=== PATIENT | male | born 1950 | race Caucasian/White ===

== ENCOUNTER 2016-03-14 06:02 | Day surgery (SDC) | END 2016-03-14 09:06 | disposition home or self-care (01) | DX: C16.9 Malignant neoplasm of stomach, unspecified (principal); K29.50 Unspecified chronic gastritis without bleeding; K25.9 Gastric ulcer, unspecified as acute or chronic, without hemorrhage or perforation; K21.9 Gastro-esophageal reflux disease without esophagitis; E11.9 Type 2 diabetes mellitus without complications | CPT/HCPCS: 43236; 43239; 82962; 88305; 88312; Z7610 ==

== ENCOUNTER 2016-04-26 08:24 | Inpatient (IN) | payer OTHER ==
[2016-04-26] VITALS (38 sets, daily range): BP systolic 102–150; BP diastolic 55–77; PULSE 60–104; RESP 10–21; Ht 165.1 cm; Wt 75.7 kg
[~2016-04-26] VITALS: Ht 165.1 cm; Wt 75.7 kg
[~2016-04-26 08:24] MED LIST: OMEP20CA16 PO; ROCURONIUM 50 MG INJ ONE; [UNRECOGNIZED DRUG - REMARK]
--- NOTE | 2016-04-26 09:55 | RADRPT ---
PROCEDURE: XR Chest. CLINICAL INDICATION: Chest pain. TECHNIQUE: AP Portable chest. COMPARISON: None FINDINGS: The cardiomediastinal silhouette is normal. Faint atherosclerotic calcifications of the thoracic ao rta are identified. Slight coarsening of the interstitial markings are seen within the right mid an d lower lung zone, likely reflecting chronic changes. No lobar consolidation or pleural effusion is evident. Mild degenerative changes of the thoracic spine are noted. IMPRESSION: 1. No radiographic evidence of acute cardiopulmonary disease. 2. Presumed mild chronic interstitial prominence in the right mid and lower lung zone. 3. Slight atherosclerotic calcifications of the thoracic aorta. RPTAT: PP .Fifi Narvaez MD, MD Date Time Electronically viewed and signed by .Fifi Narvaez MD, on 04/26/2016 09:55 .H/
[2016-04-26 10:18] LABS: ADD SCAN DIFF NO
[2016-04-26 10:21] LABS: BASOPHILS % 0.2 % (0.0-2.0); EOSINOPHILS % 0.7 % (0.0-7.0); HEMATOCRIT 44.4 % (42.0-52.0); HEMOGLOBIN 15.2 g/dl (14.0-18.0); LYMPHOCYTES # 1.2 10^3/ul (0.8-2.9); LYMPHOCYTES % 28.6 % (15.0-51.0); MEAN CORPUSCULAR HEMOGLOBIN 31.5 pg (29.0-33.0); MEAN CORPUSCULAR HGB CONC 34.2 g/dl (32.0-37.0); MEAN CORPUSCULAR VOLUME 91.9 fl (82.0-101.0); MEAN PLATELET VOLUME 10.7 fl (7.4-10.4); MONOCYTE # 0.3 10^3/ul (0.3-0.9); NEUTROPHIL # 2.7 10^3/ul (1.6-7.5); NEUTROPHILS % 63.3 % (39.0-77.0); PLATELET COUNT 172 10^3/UL (140-415); RED BLOOD COUNT 4.83 10^6/ul (4.70-6.10); RED CELL DISTRIBUTION WIDTH 12.3 % (11.5-14.5); WHITE BLOOD COUNT 4.3 10^3/ul (4.8-10.8)
[2016-04-26] MEDS ORDERED: SOD CHLORIDE 0.9% 1,000 ML IV SCH (10:30)
[2016-04-26 10:31] LABS: INR 1.01; PROTIME 13.3 Sec (12.2-14.2)
[2016-04-26 10:32] LABS: PARTIAL THROMBOPLASTIN TIME 29.9 Sec (25.0-35.0)
[2016-04-26] MEDS ORDERED: PROPOFOL 20 ML ONE (10:35)
[2016-04-26] MEDS ORDERED: MIDAZOLAM 1 MG/ML 2 ML INJ ONE (10:35)
[2016-04-26] MEDS ORDERED: ROCURONIUM 50 MG INJ ONE (10:35)
[2016-04-26 10:38] LABS: CALCIUM 9.3 mg/dl (8.4-10.2); CREATININE 0.72 mg/dl (0.61-1.24); POTASSIUM 4.1 mmol/L (3.5-5.1)
[2016-04-26] MEDS ORDERED: AMPICILLIN/SULB 3 GM/NS (PMX) 100 ML IVPB SCH (11:00)
[2016-04-26] MEDS ORDERED: morphine SULFATE/PF (10 MG/10 ML) INJ ONE (11:07)
[2016-04-26] MEDS ORDERED: PHENYLephrine (100 MCG/ML) 5ML SYG ONE (12:24)
[2016-04-26] MEDS ORDERED: FAMOTIDINE 20 MG INJ ONE (13:06)
[2016-04-26] MEDS ORDERED: DEXAMETHASONE 4 MG/ML 1 ML INJ ONE (13:06)
[2016-04-26] MEDS ORDERED: ONDANSETRON 4 MG INJ ONE (13:07)
--- NOTE | 2016-04-26 13:16 | RADRPT ---
PROCEDURE: XR Chest. CLINICAL INDICATION: Check line placement. TECHNIQUE: Single frontal view. COMPARISON: 04/26/2016. 0926 hours. FINDINGS: The endotracheal tube is in satisfactory position, 6.5 cm above the eduardo. The right internal jugu lar vein catheter is in satisfactory position with the tip in the cavoatrial junction region. The l ungs are clear. The heart size is normal. There is no pleural effusion. There is no pneumothorax. IMPRESSION: 1. Endotracheal tube and right internal jugular vein catheter in satisfactory position. 2. No pneumothorax. RPTAT: QQ .Manuel Mera MD, MD Date Time Electronically viewed and signed by .Manuel Mera MD, on 04/26/2016 13:15 .R/
[2016-04-26] MEDS ORDERED: BUPIVACAINE 0.5%/EPI (SDV) 30 ML INJ ONE (13:45)
[2016-04-26] MEDS ORDERED: GLYCOPYRROLATE 0.4 MG INJ ONE (13:56)
[2016-04-26] MEDS ORDERED: NEOSTIGMINE 3 MG/3 ML SYRINGE ONE (13:57)
[2016-04-26] MEDS ORDERED: ONDANSETRON 4 MG INJ IV PRN (14:00)
[2016-04-26] MEDS ORDERED: DIPHENHYDRAMINE 50 MG INJ IV PRN (14:00)
[2016-04-26] MEDS ORDERED: ZOLPIDEM 5 MG TAB PO PRN (14:00)
[2016-04-26] MEDS ORDERED: KETOROLAC 30 MG INJ IV PRN (14:00)
[2016-04-26] MEDS ORDERED: HYDROmorphONE 1 MG/ML SYG IV PRN ×2 (14:00→16:00)
[2016-04-26] MEDS ORDERED: PROCHLORPERAZINE 10 MG INJ IV PRN (14:00)
[2016-04-26] MEDS ORDERED: NALOXONE (0.4 MG/ML) INJ IV PRN (14:00)
[2016-04-26] MEDS ORDERED: hydrALAzine 20 MG INJ ONE (14:07)
--- NOTE | 2016-04-26 14:33 | OPR ---
DATE OF OPERATION: 04/26/2016 PREOPERATIVE DIAGNOSIS: Gastric cancer. POSTOPERATIVE DIAGNOSIS: Gastric cancer. OPERATION PERFORMED: Subtotal gastrectomy. SURGEON: Joel Villegas MD SAND MIXER OPERATOR: Robby Cuevas MD ANESTHESIA: General. ANESTHESIOLOGIST: Immanuel Stock MD INDICATIONS FOR PROCEDURE: The patient is a 65-year-old male who underwent endoscopy. He was found to have an ulcer in the prepyloric region. Biopsy confirmed invasive cancer. He was counseled as to the need for surgery, he consented and was scheduled for surgery. DESCRIPTION OF PROCEDURE: The patient was brought to the operating theater, placed under general en dotracheal tube anesthesia. The abdomen was shaved, prepped and draped in usual sterile fashion. A midline incision was made from the xiphoid to a point about 2 cm inferior to the umbilicus. Subcut aneous tissues were dissected with cautery down to the anterior rectus sheath. The linea alba was i ncised and the abdomen was entered without difficulty. The Bookwalter retractor was placed and exce llent exposure was obtained. The area where the tumor was located had been previously tattooed duri ng endoscopy. It is on the lesser curvature 2 to 3 cm before the pylorus. Preparation for resectio n was made. The avascular plane between the greater omentum and the transverse mesentery was then opened and seq uentially divided using the LigaSure device. Dissection then continued in the region of the pylorus until the entire greater curvature including a portion of the first portion of the duodenum was mob ilized. The lesser omentum was then also transected using the LigaSure device with the pylorus full y elevated. The first part of duodenum was then transected with the contour TA stapler. Further di ssection more superiorly of the lesser omentum then took place until suitable points of transection were identified, both on the greater curvature and lesser curvature. Stomach was then transected wi th multiple firings of the TA stapler with green lu. Specimen was removed. It was examined by attending pathologist, Dr. Percy Joseph, who stated that the margins were widely clear. Prepara tions for reanastomosis were then made. The ligament of Treitz was identified and approximately 40 cm distal to it, the jejunum was cleared of its mesentery and transected. A suitable point further distal for the jejunojejunal anastomosis was identified. The 2 pieces of bowel were brought in close proximity and secured in place with 3-0 silk pop-off sutures. Dual enterotomies were made and anastomosis was created with a TIA stapler. The staple line was inspected. Minimal bleeding was controlled with cautery. The anastomosis was then completed with a TA stapler. The rent in the mesentery was reapproximated with multiple 3-0 si lk pop-off sutures. Attention was then directed to creating a gastrojejunostomy. The Otilio limb was brought in close melodie roximation to the posterior surface of the remaining portion of the greater curvature, secured in pl mic with 3-0 silk pop-off sutures. A gastrotomy and enterotomy was made. Anastomosis was created w ith the TIA stapler. Staple line was inspected. Minimal bleeding was controlled with cautery. The NG tube was brought gently through the anastomosis and the anastomosis was then completed with a TA stapler in a standard fashion. At this point, the abdomen was irrigated. There was no evidence of bleeding. Lap, sponge and instr ument counts were correct. The Bookwalter retractor was then removed. The abdominal fascia was re approximated with 0 looped Prolene sutures in a running fashion. The wound was irrigated and the sk in was reapproximated with skin lu. The area around the incision was then infiltrated with 0.5 % Marcaine local anesthetic. The patient tolerated the procedure well. The estimated blood loss wa s 200 mL. There were no complications and the patient was transported in stable condition to the re covery room. Dictated By: JOEL BUCHANAN/TRAE Conf#: [id number] DID#: [id number]
[2016-04-26] MEDS: HYDROmorphONE 1 MG/ML SYG IV PRN ×3 (14:47→15:20)
[2016-04-26] MEDS ORDERED: HYDROmorphONE (0.2 MG/ML) 10ML SYG IV PRN ×3 (16:00)
--- NOTE | 2016-04-26 17:17 | HP ---
DATE OF ADMISSION: 04/26/2016 CHIEF COMPLAINT AND HISTORY OF PRESENT ILLNESS: The patient is a 65-year-old gentleman with a histo ry of diet-controlled diabetes, occasionally takes some medication could not remember name, also his tory of laryngeal cancer, status post radiation therapy and was seen by Dr. Galaviz back in 02/2016 for chronic heartburn. The patient had a gastric ulcer, which came back positive for adenocarcinoma . The patient was seen by Dr. Villegas and was brought into the hospital today and underwent subtotal gastrectomy. The patient has an NG tube in place. Denies any chest pain or shortness of breath. T he patient does have hoarseness of voice. No reported leg pain. No reported focal weakness. No re cent history of vomiting or diarrhea. No history of weakness in any extremity. The patient did hav e postoperative pain. REVIEW OF SYSTEMS: Rest of the review of systems unremarkable. PAST SURGICAL HISTORY: The patient is status post multiple surgeries on left hand, including one fo r carpal tunnel and also had right hand carpal tunnel surgery. ALLERGIES: NONE. SOCIAL HISTORY: Ex-smoker, quit more than a year ago after he was diagnosed with laryngeal CA. FAMILY HISTORY: Noncontributory. PHYSICAL EXAMINATION: GENERAL: The patient is conscious, awake, alert. VITAL SIGNS: Temperature 97.8, pulse 60, respirations 16, blood pressure 144/77, O2 saturation 97% on 2 liters. HEENT: Conjunctivae and lids are normal. Oropharynx clear. NECK: No mass. CHEST: Fairly clear. No use of accessory muscles. CARDIOVASCULAR: S1, S2 normal. No murmur. ABDOMEN: The patient is status post subtotal gastrectomy. EXTREMITIES: No leg edema. Pedal pulses palpable. SKIN: Without acute rash. NEUROLOGIC: The patient is awake, alert, follows simple commands. LABORATORY DATA: WBC 4.3, hemoglobin 15.2, platelets 172. Sodium 143, potassium 4.1, BUN 10, creat inine 0.7, glucose 107, calcium 9.3. IMPRESSION: 1. Gastric carcinoma, status post subtotal gastrectomy. 2. Laryngeal carcinoma, status post radiation therapy. 3. Diet-controlled diabetes. PLAN: The patient admitted on medical floor. The patient will be kept n.p.o. NG tube to low-sucti on. The patient will be given IV fluid, IV Protonix. We will use SCDs for DVT prophylaxis. The pa tient will be kept on IV Dilaudid APPELLATE LAW CLERK. We will do followup labs in the morning. Dictated By: JESUS JONES/TRAE Conf#: [id number] DID#: [id number]
[2016-04-26] MEDS: D5W-0.45 NACL + KCL 20 MEQ 1,000 ML IV SCH ×2 (18:51→20:37)
--- NOTE | 2016-04-26 20:35 | RADRPT ---
Vent Rate: 60 bpm RR Interval: 0 msec WI Interval: 172 msec QRS Duration: 92 msec QT Interval: 404 msec QTC Interval: 404 msec P-R-T [place]: 47 - 37 - 59 degrees Normal sinus rhythm Normal ECG Electronically Signed By: Ryan Sotomayor [id number]
[2016-04-27] VITALS (10 sets, daily range): BP systolic 103–150; BP diastolic 56–72; PULSE 78–100; RESP 15–20
[2016-04-27] MEDS: D5W-0.45 NACL + KCL 20 MEQ 1,000 ML IV SCH ×4 (01:02→22:59)
[2016-04-27] MEDS ORDERED: PANTOPRAZOLE 40 MG INJ IV SCH (06:00)
[2016-04-27 09:51] LABS: ADD SCAN DIFF NO
[2016-04-27 09:57] LABS: BASOPHILS % 0.1 % (0.0-2.0); HEMATOCRIT 36.9 % (42.0-52.0); HEMOGLOBIN 12.6 g/dl (14.0-18.0); LYMPHOCYTES # 0.8 10^3/ul (0.8-2.9); MEAN CORPUSCULAR HEMOGLOBIN 31.9 pg (29.0-33.0); MEAN CORPUSCULAR HGB CONC 34.1 g/dl (32.0-37.0); MEAN CORPUSCULAR VOLUME 93.4 fl (82.0-101.0); MEAN PLATELET VOLUME 9.9 fl (7.4-10.4); MONOCYTE # 0.8 10^3/ul (0.3-0.9); MONOCYTES % 7.2 % (0.0-11.0); NEUTROPHIL # 9.1 10^3/ul (1.6-7.5); NEUTROPHILS % 85.2 % (39.0-77.0); PLATELET COUNT 147 10^3/UL (140-415); RED BLOOD COUNT 3.95 10^6/ul (4.70-6.10); RED CELL DISTRIBUTION WIDTH 12.3 % (11.5-14.5); WHITE BLOOD COUNT 10.7 10^3/ul (4.8-10.8)
[2016-04-27 10:08] LABS: INR 1.16; PROTIME 14.8 Sec (12.2-14.2); PT RATIO 1.2
[2016-04-27 10:26] LABS: POTASSIUM 4.1 mmol/L (3.5-5.1)
[2016-04-27 10:28] LABS: CREATININE 0.72 mg/dl (0.61-1.24)
[2016-04-27 10:29] LABS: CALCIUM 8.2 mg/dl (8.4-10.2)
[2016-04-27 11:41] LABS: PARTIAL THROMBOPLASTIN TIME 31.4 Sec (25.0-35.0)
[2016-04-27] MEDS: HYDROmorphONE 1 MG/ML SYG IV PRN ×4 (14:23→22:56)
--- NOTE | 2016-04-27 17:06 | PN ---
Date/Time of Note Date/Time of Note DATE: 04/27/16 TIME: 17:02 Assessment/Plan VTE Prophylaxis VTE Prophylaxis Intervention: SCD's Lines/Catheters IV Catheter Type (from Nrsg): Central Line Central line still needed: Yes Urinary Cath still in place: Yes Reason Cath still needed: urinary retention Assessment/Plan Assessment/Plan 1. Gastric carcinoma, status post subtotal gastrectomy. Continue n.p.o. NG tube to low suction. Continue IV fluids. Continue Dilaudid LIVESTOCK BUYER for pain. Incentive spirometer every hour while patient is awake. 2. Laryngeal carcinoma, status post radiation therapy. 3. Diet-controlled diabetes. Continue sequential compression device for deep venous thrombosis prophylaxis and Protonix for peptic ulcer disease prophylaxis. Further recommendations based on clinical course. Plan of care discussed with Dr. Hood. Subjective 24 Hr Interval Summary Free Text/Dictation Patient continues on LIVESTOCK BUYER Dilaudid, bowel sounds are hypoactive, patient is n.p.o., encouraged to use incentive spirometer while awake, patient was able to get out of bed to sit in the chair. Exam/Review of Systems Vital Signs Vitals Vital Signs Date Time Temp Pulse Resp B/P Pulse Ox O2 Delivery O2 Flow Rate FiO2 04/27/16 08:39 98.4 101 20 148/65 98 04/27/16 08:00 Nasal Cannula 2.0 Intake and Output 04/26/16 04/26/16 04/27/16 15:00 23:00 07:00 Intake Total 2500 ml 1750 ml Output Total 485 ml 450 ml 15 ml Balance 2015 ml -450 ml 1735 ml Exam Constitutional: alert, oriented Psych: no complaints Head: atraumatic, normocephalic Eyes: nl conjunctiva ENMT: nl external ears & nose Neck: non-tender, supple Respiratory: clear to auscultation, normal air movement Cardiovascular: nl pulses, regular rate and rhythm Gastrointestinal: other (Status post surgery), soft Musculoskeletal: nl extremities to inspection Extremities: normal pulses Neurological: SANDER AND BUFFER II-XII intact Results Result Diagram: 04/27/16 0940 04/27/16 0940 Results 24 hrs Laboratory Tests Test 04/27/16 09:40 Activated Partial Thromboplast Time 31.4 Anion Gap 13 Basophils # 0.0 Basophils % 0.1 Blood Urea Nitrogen 13 Calcium Level 8.2 L Carbon Dioxide Level 25 Chloride Level 106 Creatinine 0.72 Eosinophils # 0.0 Eosinophils % 0.0 Glucose Level 169 Hematocrit 36.9 L Hemoglobin 12.6 L INR International Normalized Ratio 1.16 Lymphocytes # 0.8 Lymphocytes % 7.0 L Mean Corpuscular Hemoglobin 31.9 Mean Corpuscular Hemoglobin Concent 34.1 Mean Corpuscular Volume 93.4 Mean Platelet Volume 9.9 Monocytes # 0.8 Monocytes % 7.2 Neutrophils # 9.1 H Neutrophils % 85.2 H Nucleated Red Blood Cells # 0.0 Nucleated Red Blood Cells % 0.0 Platelet Count 147 Potassium Level 4.1 Prothrombin Time 14.8 H Prothrombin Time Ratio 1.2 Red Blood Count 3.95 L Red Cell Distribution Width 12.3 Sodium Level 140 White Blood Count 10.7 # Medications Medications Current Medications Pantoprazole 40 mg 40 mg DAILY@06 IV Last administered on 04/27/16 05:44; Admin Dose 40 MG; Start 04/27/16 at 06:00 Potassium Chloride/Dextrose/ Sod Cl (D5-1/2ns + KCl 20 Meq) 1,000 ml @ 150 mls/ hr Q6H40M IV Last administered on 04/27/16 14:22; Admin Dose 150 MLS/HR; Start 04/26/16 at 13:57 Hydromorphone HCl (Dilaudid) 0.2 mg Q1HWA PRN IV PAIN LEVEL 1-5; Start 04/26/16 at 16:00 Hydromorphone HCl (Dilaudid) 0.4 mg Q1HWA PRN IV PAIN LEVEL 6-10 Last administered on 04/27/16 14:23; Admin Dose 0.4 MG; Start 04/26/16 at 16:00 KRYS RIVERA Apr 27, 2016 17:06
[2016-04-27] MEDS: PANTOPRAZOLE 40 MG INJ IV SCH (18:54)
[2016-04-28] MEDS: D5W-0.45 NACL + KCL 20 MEQ 1,000 ML IV SCH ×3 (03:22→19:11)
[2016-04-28] MEDS: HYDROmorphONE 1 MG/ML SYG IV PRN ×10 (03:28→22:53)
[2016-04-28] MEDS ORDERED: ONDANSETRON 4 MG INJ IV PRN (04:00)
[2016-04-28] MEDS: PANTOPRAZOLE 40 MG INJ IV SCH ×2 (04:01→17:29)
[2016-04-28 05:13] LABS: ADD SCAN DIFF NO
[2016-04-28 05:27] LABS: INR 1.12; PROTIME 14.4 Sec (12.2-14.2); PT RATIO 1.1
[2016-04-28 05:28] LABS: CREATININE 0.66 mg/dl (0.61-1.24); PARTIAL THROMBOPLASTIN TIME 32.9 Sec (25.0-35.0)
[2016-04-28 05:29] LABS: CALCIUM 8.2 mg/dl (8.4-10.2)
[2016-04-28 05:36] LABS: BASOPHILS % 0.1 % (0.0-2.0); HEMATOCRIT 37.1 % (42.0-52.0); HEMOGLOBIN 12.3 g/dl (14.0-18.0); LYMPHOCYTES # 0.6 10^3/ul (0.8-2.9); LYMPHOCYTES % 8.4 % (15.0-51.0); MEAN CORPUSCULAR HEMOGLOBIN 31.3 pg (29.0-33.0); MEAN CORPUSCULAR HGB CONC 33.2 g/dl (32.0-37.0); MEAN CORPUSCULAR VOLUME 94.4 fl (82.0-101.0); MEAN PLATELET VOLUME 10.8 fl (7.4-10.4); MONOCYTE # 0.5 10^3/ul (0.3-0.9); MONOCYTES % 6.9 % (0.0-11.0); NEUTROPHIL # 6.2 10^3/ul (1.6-7.5); NEUTROPHILS % 84.3 % (39.0-77.0); PLATELET COUNT 142 10^3/UL (140-415); RED BLOOD COUNT 3.93 10^6/ul (4.70-6.10); RED CELL DISTRIBUTION WIDTH 12.3 % (11.5-14.5); WHITE BLOOD COUNT 7.4 10^3/ul (4.8-10.8)
[2016-04-28 08:17] VITALS: BP 130/71; RESP 20
[2016-04-28 14:23] VITALS: BP 126/61; PULSE 88; RESP 18
--- NOTE | 2016-04-28 15:03 | PN ---
DATE: 04/28/2016 PROGRESS FOLLOWUP NOTE Postoperative day #2. SUBJECTIVE: Feels better. No new specific complaints. He has been out of bed , walking around a little bit. OBJECTIVE: GENERAL: Awake and oriented, lying down in bed. VITAL SIGNS: Temperature 98.1, heart rate between 78 and 102, respirations 20, blood pressure 130/71, saturations 95%. LABORATORY: BUN, creatinine, sodium and potassium are within normal limits today. WBC 7400, hemoglobin 12.3, hematocrit 37.1. Neutrophils 84%, shift to the left. NG tube has drained 150 mL. Nathaniel-Mathis has drained 20 mL. PHYSICAL EXAMINATION: ABDOMEN: Soft. HEART: Regular. LUNGS: respirations not labored. EXTREMITIES: Legs, no calf tenderness. Sequential compression devices around. ASSESSMENT: A 65-year-old gentleman, status post subtotal gastrectomy and Otilio- En-Y gasterojejunostomy for gastric cancer. The patient is doing fine. NG tube is in place. Wallace catheter is in place. Pain medication controlled, per patient. PLAN: 1. Continue the current care. 2. Tomorrow morning will discontinue the Wallace catheter. Dictated By: JERRY LANIER MD PS/NTS Conf#: [id number] DID#: [id number] MTDD
--- NOTE | 2016-04-28 16:08 | PN ---
Date/Time of Note Date/Time of Note DATE: 04/28/16 TIME: 16:06 Assessment/Plan VTE Prophylaxis VTE Prophylaxis Intervention: SCD's Lines/Catheters IV Catheter Type (from Nrs): Central Line Urinary Cath still in place: Yes Assessment/Plan Assessment/Plan 1. Gastric carcinoma, status post subtotal gastrectomy. - per surgery - n.p.o. NG tube to low-suction. - IV fluid, IV Protonix. 2. Laryngeal carcinoma, status post radiation therapy. 3. Diet-controlled diabetes. 4. SCDs for DVT prophylaxis. Dw Dr Hood Subjective 24 Hr Interval Summary Eyes: no complaints ENT: no complaints Respiratory: no complaints Gastrointestinal: decreased appetite, pain Genitourinary: no complaints Musculoskeletal: no complaints Skin: other Neurologic: no complaints Endocrine: no complaints Lymphatic: no complaints Psychological: no complaints Exam/Review of Systems Vital Signs Vitals Vital Signs Date Time Temp Pulse Resp B/P Pulse Ox O2 Delivery O2 Flow Rate FiO2 04/28/16 14:23 98.2 88 18 126/61 100 Nasal Cannula 3.0 Intake and Output 04/27/16 04/27/16 04/28/16 15:00 23:00 07:00 Intake Total 1300 ml 1300 ml Output Total 2020 ml 1850 ml Balance -720 ml -550 ml Exam Constitutional: alert, oriented, well developed Head: atraumatic Eyes: EOMI, nl sclera ENMT: nl external ears & nose Neck: non-tender Respiratory: clear to auscultation Cardiovascular: nl pulses Gastrointestinal: other, soft Musculoskeletal: nl extremities to inspection Extremities: normal pulses Neurological: nl mental status, nl speech Skin: other Lymph: nontender Results Result Diagram: 04/28/16 0436 04/28/16 0436 Results 24 hrs Laboratory Tests Test 04/28/16 04:36 Activated Partial Thromboplast Time 32.9 Anion Gap 12 Basophils # 0.0 Basophils % 0.1 Blood Urea Nitrogen 8 Calcium Level 8.2 L Carbon Dioxide Level 30 Chloride Level 100 Creatinine 0.66 Eosinophils # 0.0 Eosinophils % 0.0 Glucose Level 179 Hematocrit 37.1 L Hemoglobin 12.3 L INR International Normalized Ratio 1.12 Lymphocytes # 0.6 L Lymphocytes % 8.4 L Mean Corpuscular Hemoglobin 31.3 Mean Corpuscular Hemoglobin Concent 33.2 Mean Corpuscular Volume 94.4 Mean Platelet Volume 10.8 H Monocytes # 0.5 Monocytes % 6.9 Neutrophils # 6.2 Neutrophils % 84.3 H Nucleated Red Blood Cells # 0.0 Nucleated Red Blood Cells % 0.0 Platelet Count 142 Potassium Level 4.0 Prothrombin Time 14.4 H Prothrombin Time Ratio 1.1 Red Blood Count 3.93 L Red Cell Distribution Width 12.3 Sodium Level 138 White Blood Count 7.4 # Medications Medications Current Medications Potassium Chloride/Dextrose/ Sod Cl (D5-1/2ns + KCl 20 Meq) 1,000 ml @ 150 mls/ hr Q6H40M IV Last administered on 04/28/16 11:25; Admin Dose 150 MLS/HR; Start 04/26/16 at 13:57 Hydromorphone HCl (Dilaudid) 0.2 mg Q1HWA PRN IV PAIN LEVEL 1-5; Start 04/26/16 at 16:00 Hydromorphone HCl (Dilaudid) 0.4 mg Q1HWA PRN IV PAIN LEVEL 6-10 Last administered on 04/28/16 15:58; Admin Dose 0.4 MG; Start 04/26/16 at 16:00 Pantoprazole (Protonix Iv) 40 mg BID@06,18 IV Last administered on 04/28/16 04 :01; Admin Dose 40 MG; Start 04/27/16 at 19:30 Ondansetron HCl (Zofran Inj) 4 mg Q6H PRN IV NAUSEA AND/OR VOMITING Last administered on 04/28/16 04:01; Admin Dose 4 MG; Start 04/28/16 at 04:00 RANDY CALL Apr 28, 2016 16:07
[2016-04-28 20:16] VITALS: BP 118/68; PULSE 72; RESP 18
[2016-04-29] MEDS: HYDROmorphONE 1 MG/ML SYG IV PRN ×7 (01:20→23:29)
[2016-04-29] MEDS: D5W-0.45 NACL + KCL 20 MEQ 1,000 ML IV SCH ×4 (01:20→17:35)
[2016-04-29 05:04] LABS: ADD SCAN DIFF NO
[2016-04-29 05:10] LABS: INR 1.19; PROTIME 15.2 Sec (12.2-14.2); PT RATIO 1.2
[2016-04-29 05:11] LABS: PARTIAL THROMBOPLASTIN TIME 34.3 Sec (25.0-35.0)
[2016-04-29 05:14] LABS: BASOPHILS % 0.1 % (0.0-2.0); EOSINOPHILS % 0.3 % (0.0-7.0); HEMATOCRIT 37.5 % (42.0-52.0); HEMOGLOBIN 12.7 g/dl (14.0-18.0); LYMPHOCYTES # 0.8 10^3/ul (0.8-2.9); MEAN CORPUSCULAR HEMOGLOBIN 31.4 pg (29.0-33.0); MEAN CORPUSCULAR HGB CONC 33.9 g/dl (32.0-37.0); MEAN CORPUSCULAR VOLUME 92.8 fl (82.0-101.0); MEAN PLATELET VOLUME 10.6 fl (7.4-10.4); MONOCYTE # 0.4 10^3/ul (0.3-0.9); MONOCYTES % 5.7 % (0.0-11.0); NEUTROPHIL # 6.2 10^3/ul (1.6-7.5); NEUTROPHILS % 82.6 % (39.0-77.0); PLATELET COUNT 138 10^3/UL (140-415); RED BLOOD COUNT 4.04 10^6/ul (4.70-6.10); WHITE BLOOD COUNT 7.5 10^3/ul (4.8-10.8)
[2016-04-29 05:29] LABS: CREATININE 0.7 mg/dl (0.61-1.24)
[2016-04-29 05:31] LABS: CALCIUM 8.4 mg/dl (8.4-10.2)
[2016-04-29] MEDS: PANTOPRAZOLE 40 MG INJ IV SCH ×2 (06:19→17:35)
[2016-04-29 08:17] VITALS: BP 130/63; RESP 20
--- NOTE | 2016-04-29 15:49 | PN ---
Date/Time of Note Date/Time of Note DATE: 04/29/16 TIME: 15:45 Assessment/Plan VTE Prophylaxis VTE Prophylaxis Intervention: other Lines/Catheters IV Catheter Type (from Nrs): Central Line Urinary Cath still in place: Yes Assessment/Plan Assessment/Plan 1. Gastric carcinoma, status post subtotal gastrectomy. - per surgery - n.p.o. NG tube to low-suction. - IV fluid, IV Protonix. 2. Laryngeal carcinoma, status post radiation therapy. 3. Diet-controlled diabetes. 4. SCDs for DVT prophylaxis. Dayo Hood Subjective 24 Hr Interval Summary Free Text/Dictation nad, up in chair, feels little better, son at bed side- all Qs. dw staff. Constitutional: improved Eyes: no complaints ENT: no complaints Respiratory: no complaints Cardiovascular: no complaints Gastrointestinal: pain Genitourinary: no complaints Musculoskeletal: no complaints Skin: no complaints Neurologic: no complaints Exam/Review of Systems Vital Signs Vitals Vital Signs Date Time Temp Pulse Resp B/P Pulse Ox O2 Delivery O2 Flow Rate FiO2 04/29/16 08:17 98.0 90 20 130/63 96 04/28/16 20:16 Nasal Cannula 2.0 Intake and Output 04/28/16 04/28/16 04/29/16 15:00 23:00 07:00 Intake Total 750 ml 1800 ml Output Total 620 ml 1505 ml Balance 130 ml 295 ml Exam Constitutional: alert, oriented Results Result Diagram: 04/29/16 0425 04/29/16 0425 Results 24 hrs Laboratory Tests Test 04/29/16 04:25 Activated Partial Thromboplast Time 34.3 Anion Gap 13 Basophils # 0.0 Basophils % 0.1 Blood Urea Nitrogen 8 Calcium Level 8.4 Carbon Dioxide Level 28 Chloride Level 100 Creatinine 0.70 Eosinophils # 0.0 Eosinophils % 0.3 Glucose Level 154 Hematocrit 37.5 L Hemoglobin 12.7 L INR International Normalized Ratio 1.19 Lymphocytes # 0.8 Lymphocytes % 11.0 L Mean Corpuscular Hemoglobin 31.4 Mean Corpuscular Hemoglobin Concent 33.9 Mean Corpuscular Volume 92.8 Mean Platelet Volume 10.6 H Monocytes # 0.4 Monocytes % 5.7 Neutrophils # 6.2 Neutrophils % 82.6 H Nucleated Red Blood Cells # 0.0 Nucleated Red Blood Cells % 0.0 Platelet Count 138 L Potassium Level 4.0 Prothrombin Time 15.2 H Prothrombin Time Ratio 1.2 Red Blood Count 4.04 L Red Cell Distribution Width 12.0 Sodium Level 137 White Blood Count 7.5 Medications Medications Current Medications Potassium Chloride/Dextrose/ Sod Cl (D5-1/2ns + KCl 20 Meq) 1,000 ml @ 150 mls/ hr Q6H40M IV Last administered on 04/29/16 08:00; Admin Dose 150 MLS/HR; Start 04/26/16 at 13:57 Pantoprazole (Protonix Iv) 40 mg BID@06,18 IV Last administered on 04/29/16 06 :19; Admin Dose 40 MG; Start 04/27/16 at 19:30 Ondansetron HCl (Zofran Inj) 4 mg Q6H PRN IV NAUSEA AND/OR VOMITING Last administered on 04/28/16 04:01; Admin Dose 4 MG; Start 04/28/16 at 04:00 Hydromorphone HCl (Dilaudid) 0.2 mg Q1H PRN IV PAIN LEVEL 1-5; Start 04/28/16 at 16:30 Hydromorphone HCl (Dilaudid) 0.6 mg Q2H PRN IV PAIN; Start 04/29/16 at 15:00 RANDY CALL Apr 29, 2016 15:49
--- NOTE | 2016-04-29 15:54 | PN ---
DATE: 04/29/2016 SUBJECTIVE: Postop day #3. No new complaint, no BM, no flatus. Has been walking around the floor. OBJECTIVE: VITAL SIGNS: Temperature 98, heart rate 90, respirations 20, blood pressure 130/63, saturation 96% 2 liters nasal cannula. LABORATORY DATA: Today, sodium and potassium within normal limits. Hemogram: WBC 7500 with 82% seg mented, shift to the left. Hemoglobin 12.6, hematocrit 37.5 Abdomen is soft. Dressing is intact. NG tube has drained 50 mL what appears to be slightly greenis h. Wallace was discontinued today. Patient is urinating in the urinal. ASSESSMENT: A 65-year-old male status post subtotal gastrectomy for cancer of the stomach, postop d ay #3. The patient is very stable, but yet has not passed gas or flatus. PLAN: Continue current care. Keep NG tube. Continue pain medication. Dictated By: JERRY LANIER MD PS/TRAE Conf#: [id number] DID#: [id number]
[2016-04-29 21:05] VITALS: BP 154/82; RESP 18
[2016-04-30] MEDS: D5W-0.45 NACL + KCL 20 MEQ 1,000 ML IV SCH ×4 (00:11→22:49)
[2016-04-30] MEDS: PANTOPRAZOLE 40 MG INJ IV SCH ×2 (05:15→18:33)
[2016-04-30] MEDS: HYDROmorphONE 1 MG/ML SYG IV PRN ×6 (05:59→22:00)
[2016-04-30 08:05] VITALS: BP 138/72; RESP 18
[2016-04-30 09:09] LABS: ADD SCAN DIFF NO
[2016-04-30 09:12] LABS: BASOPHILS % 0.2 % (0.0-2.0); EOSINOPHILS # 0.1 10^3/ul (0.0-0.5); EOSINOPHILS % 1.7 % (0.0-7.0); HEMOGLOBIN 12.6 g/dl (14.0-18.0); LYMPHOCYTES # 0.7 10^3/ul (0.8-2.9); LYMPHOCYTES % 11.3 % (15.0-51.0); MEAN CORPUSCULAR HEMOGLOBIN 32.1 pg (29.0-33.0); MEAN CORPUSCULAR VOLUME 91.8 fl (82.0-101.0); MONOCYTE # 0.5 10^3/ul (0.3-0.9); MONOCYTES % 7.9 % (0.0-11.0); NEUTROPHIL # 5.2 10^3/ul (1.6-7.5); NEUTROPHILS % 78.7 % (39.0-77.0); PLATELET COUNT 159 10^3/UL (140-415); RED BLOOD COUNT 3.92 10^6/ul (4.70-6.10); RED CELL DISTRIBUTION WIDTH 12.2 % (11.5-14.5); WHITE BLOOD COUNT 6.6 10^3/ul (4.8-10.8)
[2016-04-30 09:24] LABS: POTASSIUM 4.2 mmol/L (3.5-5.1)
[2016-04-30 09:25] LABS: INR 1.1; PROTIME 14.2 Sec (12.2-14.2); PT RATIO 1.1
[2016-04-30 09:26] LABS: PARTIAL THROMBOPLASTIN TIME 34.4 Sec (25.0-35.0)
[2016-04-30 09:27] LABS: CREATININE 0.67 mg/dl (0.61-1.24)
[2016-04-30 09:28] LABS: CALCIUM 8.8 mg/dl (8.4-10.2)
--- NOTE | 2016-04-30 11:51 | PN ---
DATE: 04/30/2016 Postoperative day #4. SUBJECTIVE: No new events. No bowel movement. No passing gas. OBJECTIVE: VITAL SIGNS: Temperature 97.9, pulse rate 82, respirations 18, blood pressure 178/72, saturation 99 % on room air. LABORATORY: Today, coagulation is normal. Creatinine, sodium, potassium normal. Hematology: WBC 6600 with 78% segmented slightly elevated, [id number]. Hemoglobin and hematocrit 36. PHYSICAL EXAMINATION: ABDOMEN: Soft. NG tube total in 24 hour almost 300 mL. Nathaniel-Mathis 20 mL serosanguinous. ASSESSMENT AND PLAN: A 65-year-old is status post subtotal gastrectomy for cancer. Doing fine. Vi socorro signs are stable, has not passed gas and has not had any bowel movement yet. Today is postop da y #4. Pathology is not back yet. PLAN: May start patient on ice chip one cup every 8 hours. Ambulation will continue. Incentive spi rometry to be continued. Aspiration precautions to be continued. Will follow. Dictated By: JERRY LANIER MD PS/TRAE Conf#: [id number] DID#: [id number]
--- NOTE | 2016-04-30 14:59 | PN ---
Date/Time of Note Date/Time of Note DATE: 04/30/16 TIME: 14:56 Assessment/Plan VTE Prophylaxis VTE Prophylaxis Intervention: SCD's Lines/Catheters IV Catheter Type (from Nrs): Central Line Central line still needed: Yes Urinary Cath still in place: No Assessment/Plan Chief Complaint/Hosp Course Assessment/Plan 1. Gastric carcinoma, status post subtotal gastrectomy. Continue n.p.o. NG tube to low suction. Continue IV fluids. Continue Dilaudid MACHINE CLERICAL VERIFIER for pain. Incentive spirometer every hour while patient is awake. 2. Laryngeal carcinoma, status post radiation therapy. 3. Diet-controlled diabetes. Continue sequential compression device for deep venous thrombosis prophylaxis and Protonix for peptic ulcer disease prophylaxis. Further recommendations based on clinical course. Plan of care discussed with Dr. Hood. Problems: Subjective 24 Hr Interval Summary Free Text/Dictation Patient has no bowel sounds and negative flatus, pain is well controlled. Exam/Review of Systems Vital Signs Vitals Vital Signs Date Time Temp Pulse Resp B/P Pulse Ox O2 Delivery O2 Flow Rate FiO2 04/30/16 08:30 Nasal Cannula 2.0 04/30/16 08:05 97.7 82 18 138/72 99 Intake and Output 04/29/16 04/29/16 04/30/16 15:00 23:00 07:00 Intake Total 300 ml 1650 ml 1800 ml Output Total 1410 ml 1560 ml Balance 300 ml 240 ml 240 ml Exam Constitutional: alert, oriented Psych: no complaints Head: atraumatic, normocephalic Eyes: nl conjunctiva ENMT: nl external ears & nose Neck: non-tender, supple Respiratory: clear to auscultation, normal air movement Cardiovascular: nl pulses, regular rate and rhythm Gastrointestinal: other (Status post surgery), soft Musculoskeletal: nl extremities to inspection Extremities: normal pulses Neurological: MEDICAL COMMUNICATION SPECIALIST II-XII intact Results Result Diagram: 04/30/16 0855 04/30/16 0855 Results 24 hrs Laboratory Tests Test 04/30/16 08:55 Activated Partial Thromboplast Time 34.4 Anion Gap 14 Basophils # 0.0 Basophils % 0.2 Blood Urea Nitrogen 10 Calcium Level 8.8 Carbon Dioxide Level 28 Chloride Level 103 Creatinine 0.67 Eosinophils # 0.1 Eosinophils % 1.7 Glucose Level 180 Hematocrit 36.0 L Hemoglobin 12.6 L INR International Normalized Ratio 1.10 Lymphocytes # 0.7 L Lymphocytes % 11.3 L Mean Corpuscular Hemoglobin 32.1 Mean Corpuscular Hemoglobin Concent 35.0 Mean Corpuscular Volume 91.8 Mean Platelet Volume 10.0 Monocytes # 0.5 Monocytes % 7.9 Neutrophils # 5.2 Neutrophils % 78.7 H Nucleated Red Blood Cells # 0.0 Nucleated Red Blood Cells % 0.0 Platelet Count 159 Potassium Level 4.2 Prothrombin Time 14.2 Prothrombin Time Ratio 1.1 Red Blood Count 3.92 L Red Cell Distribution Width 12.2 Sodium Level 141 White Blood Count 6.6 Medications Medications Current Medications Potassium Chloride/Dextrose/ Sod Cl (D5-1/2ns + KCl 20 Meq) 1,000 ml @ 150 mls/ hr Q6H40M IV Last administered on 04/30/16 07:17; Admin Dose 150 MLS/HR; Start 04/26/16 at 13:57 Pantoprazole (Protonix Iv) 40 mg BID@06,18 IV Last administered on 04/30/16 05 :15; Admin Dose 40 MG; Start 04/27/16 at 19:30 Ondansetron HCl (Zofran Inj) 4 mg Q6H PRN IV NAUSEA AND/OR VOMITING Last administered on 04/28/16 04:01; Admin Dose 4 MG; Start 04/28/16 at 04:00 Hydromorphone HCl (Dilaudid) 0.2 mg Q1H PRN IV PAIN LEVEL 1-5; Start 04/28/16 at 16:30 Hydromorphone HCl (Dilaudid) 0.6 mg Q2H PRN IV PAIN Last administered on 13:06; Admin Dose 0.6 MG; Start 04/29/16 at 15:00 KRYS RIVERA Apr 30, 2016 14:59
[2016-04-30 19:18] VITALS: BP 141/66; RESP 19
[2016-05-01] MEDS: HYDROmorphONE 1 MG/ML SYG IV PRN ×8 (00:26→23:58)
[2016-05-01 05:13] LABS: ADD SCAN DIFF NO
[2016-05-01 05:20] LABS: EOSINOPHILS # 0.1 10^3/ul (0.0-0.5); EOSINOPHILS % 2.3 % (0.0-7.0); HEMATOCRIT 34.9 % (42.0-52.0); HEMOGLOBIN 11.9 g/dl (14.0-18.0); LYMPHOCYTES % 18.7 % (15.0-51.0); MEAN CORPUSCULAR HEMOGLOBIN 31.4 pg (29.0-33.0); MEAN CORPUSCULAR HGB CONC 34.1 g/dl (32.0-37.0); MEAN CORPUSCULAR VOLUME 92.1 fl (82.0-101.0); MEAN PLATELET VOLUME 10.4 fl (7.4-10.4); MONOCYTE # 0.5 10^3/ul (0.3-0.9); MONOCYTES % 8.8 % (0.0-11.0); NEUTROPHIL # 3.7 10^3/ul (1.6-7.5); PLATELET COUNT 155 10^3/UL (140-415); RED BLOOD COUNT 3.79 10^6/ul (4.70-6.10); RED CELL DISTRIBUTION WIDTH 12.2 % (11.5-14.5); WHITE BLOOD COUNT 5.2 10^3/ul (4.8-10.8)
[2016-05-01 05:29] LABS: POTASSIUM 3.8 mmol/L (3.5-5.1)
[2016-05-01 05:31] LABS: CREATININE 0.65 mg/dl (0.61-1.24)
[2016-05-01 05:32] LABS: CALCIUM 8.3 mg/dl (8.4-10.2)
[2016-05-01] MEDS: PANTOPRAZOLE 40 MG INJ IV SCH ×2 (05:37→17:59)
[2016-05-01] MEDS: D5W-0.45 NACL + KCL 20 MEQ 1,000 ML IV SCH ×4 (05:38→23:56)
[2016-05-01 07:57] VITALS: BP 121/58; RESP 18
--- NOTE | 2016-05-01 18:40 | PN ---
DATE: 05/01/2016 SUBJECTIVE: Postoperative day #5. No new complaints. Negative BM, negative flatus. OBJECTIVE: VITAL SIGNS: Temperature 99, heart rate 77, respiration 18, blood pressure 121/58, saturation 97% o n room air. LABORATORY DATA: BUN, creatinine, sodium, and potassium within normal limits. WBC 5200, hemoglobin 11.9, hematocrit 34.9. Nathaniel-Mathis drainage 10 mL serosanguineous. NG tube: Apparently there h as not been that much drainage from the NG tube in the past 24 hours. ABDOMEN: Soft. Incision line is clean. Nathaniel-Mathis in place. EXTREMITIES: No calf tenderness. ASSESSMENT: Postop day #5 for subtotal gastrectomy. The patient is stable from my point of view, e xcept that the patient has not passed any gas nor has had any bowel movement yet. PLAN: Continue current care. As soon as the patient starts passing gas or bowel movement, we are g oing to perform a Gastrografin upper GI examination and, if everything is okay and there is no leak or obstruction, then we can start feeding the patient on clear liquids. Dictated By: JERRY LANIER MD PS/NTS Conf#: [id number] DID#: [id number] CC: SUZI DOMÍNGUEZ MD;*EndCC*
--- NOTE | 2016-05-01 19:11 | PN ---
Date/Time of Note Date/Time of Note DATE: 05/01/16 TIME: 19:09 Assessment/Plan VTE Prophylaxis VTE Prophylaxis Intervention: SCD's Lines/Catheters IV Catheter Type (from Nrsg): Central Line Central line still needed: Yes Urinary Cath still in place: No Assessment/Plan Chief Complaint/Hosp Course Assessment/Plan 1. Gastric carcinoma, status post subtotal gastrectomy. Continue n.p.o. NG tube to low suction. Continue IV fluids. Continue Dilaudid BLACK TOP PAVER OPERATOR for pain. Incentive spirometer every hour while patient is awake. 2. Laryngeal carcinoma, status post radiation therapy. 3. Diet-controlled diabetes. Continue sequential compression device for deep venous thrombosis prophylaxis and Protonix for peptic ulcer disease prophylaxis. Further recommendations based on clinical course. Plan of care discussed with Dr. Hood. Problems: Subjective 24 Hr Interval Summary Free Text/Dictation Patient pain is well controlled, no flatus, neg BS, started on ice chips, no N/ V. Exam/Review of Systems Vital Signs Vitals Vital Signs Date Time Temp Pulse Resp B/P Pulse Ox O2 Delivery O2 Flow Rate FiO2 05/01/16 08:00 Nasal Cannula 2.0 05/01/16 07:57 99.0 77 18 121/58 97 Intake and Output 04/30/16 04/30/16 05/01/16 15:00 23:00 07:00 Intake Total 1800 ml 1000 ml Output Total 710 ml Balance 1800 ml 290 ml Exam Constitutional: alert, oriented Psych: no complaints Head: atraumatic, normocephalic Eyes: nl conjunctiva ENMT: nl external ears & nose Neck: non-tender, supple Respiratory: clear to auscultation, normal air movement Cardiovascular: nl pulses, regular rate and rhythm Gastrointestinal: other (Status post surgery), soft Musculoskeletal: nl extremities to inspection Extremities: normal pulses Neurological: MOLDED PARTS INSPECTOR II-XII intact Results Result Diagram: 05/01/16 0432 05/01/16 0431 Results 24 hrs Laboratory Tests Test 05/01/16 04:31 05/01/16 04:32 Anion Gap 13 Blood Urea Nitrogen 9 Calcium Level 8.3 L Carbon Dioxide Level 28 Chloride Level 103 Creatinine 0.65 Glucose Level 144 Potassium Level 3.8 Sodium Level 140 Basophils # 0.0 Basophils % 0.0 Eosinophils # 0.1 Eosinophils % 2.3 Hematocrit 34.9 L Hemoglobin 11.9 L Lymphocytes # 1.0 Lymphocytes % 18.7 Mean Corpuscular Hemoglobin 31.4 Mean Corpuscular Hemoglobin Concent 34.1 Mean Corpuscular Volume 92.1 Mean Platelet Volume 10.4 Monocytes # 0.5 Monocytes % 8.8 Neutrophils # 3.7 Neutrophils % 70.0 Nucleated Red Blood Cells # 0.0 Nucleated Red Blood Cells % 0.0 Platelet Count 155 Red Blood Count 3.79 L Red Cell Distribution Width 12.2 White Blood Count 5.2 # Medications Medications Current Medications Potassium Chloride/Dextrose/ Sod Cl (D5-1/2ns + KCl 20 Meq) 1,000 ml @ 150 mls/ hr Q6H40M IV Last administered on 05/01/16 12:49; Admin Dose 150 MLS/HR; Start 04/26/16 at 13:57 Pantoprazole (Protonix Iv) 40 mg BID@06,18 IV Last administered on 05/01/16 17 :59; Admin Dose 40 MG; Start 04/27/16 at 19:30 Ondansetron HCl (Zofran Inj) 4 mg Q6H PRN IV NAUSEA AND/OR VOMITING Last administered on 04/28/16 04:01; Admin Dose 4 MG; Start 04/28/16 at 04:00 Hydromorphone HCl (Dilaudid) 0.2 mg Q1H PRN IV PAIN LEVEL 1-5; Start 04/28/16 at 16:30 Hydromorphone HCl (Dilaudid) 0.6 mg Q2H PRN IV PAIN Last administered on 17:00; Admin Dose 0.6 MG; Start 04/29/16 at 15:00 KRYS RIVERA May 01, 2016 19:10
[2016-05-01 20:00] VITALS: BP 152/79; RESP 18
[2016-05-02] MEDS: HYDROmorphONE 1 MG/ML SYG IV PRN ×5 (04:39→21:16)
[2016-05-02 05:23] LABS: ADD SCAN DIFF NO
[2016-05-02 05:30] LABS: BASOPHILS % 0.2 % (0.0-2.0); EOSINOPHILS # 0.1 10^3/ul (0.0-0.5); HEMATOCRIT 35.1 % (42.0-52.0); HEMOGLOBIN 11.9 g/dl (14.0-18.0); LYMPHOCYTES # 0.8 10^3/ul (0.8-2.9); LYMPHOCYTES % 16.7 % (15.0-51.0); MEAN CORPUSCULAR HEMOGLOBIN 30.9 pg (29.0-33.0); MEAN CORPUSCULAR HGB CONC 33.9 g/dl (32.0-37.0); MEAN CORPUSCULAR VOLUME 91.2 fl (82.0-101.0); MEAN PLATELET VOLUME 10.5 fl (7.4-10.4); MONOCYTE # 0.5 10^3/ul (0.3-0.9); MONOCYTES % 9.9 % (0.0-11.0); NEUTROPHIL # 3.5 10^3/ul (1.6-7.5); NEUTROPHILS % 70.8 % (39.0-77.0); PLATELET COUNT 167 10^3/UL (140-415); RED BLOOD COUNT 3.85 10^6/ul (4.70-6.10); RED CELL DISTRIBUTION WIDTH 12.3 % (11.5-14.5)
[2016-05-02 05:32] LABS: POTASSIUM 3.7 mmol/L (3.5-5.1)
[2016-05-02 05:35] LABS: CREATININE 0.65 mg/dl (0.61-1.24)
[2016-05-02 05:36] LABS: CALCIUM 8.5 mg/dl (8.4-10.2)
[2016-05-02] MEDS: PANTOPRAZOLE 40 MG INJ IV SCH ×2 (06:28→17:24)
[2016-05-02 07:00] VITALS: BP 118/66; RESP 20
[2016-05-02] MEDS: D5W-0.45 NACL + KCL 20 MEQ 1,000 ML IV SCH ×4 (09:31→23:17)
--- NOTE | 2016-05-02 15:05 | PN ---
DATE: 05/02/2016 SUBJECTIVE: No complaint. He has passed 1 episode of gas today. No bowel movement. No nausea, no vomiting. OBJECTIVE: VITAL SIGNS: Temperature 98.7, heart rate 71, respirations 20, blood pressure 118/67, saturation 95 % on 2 liters nasal cannula. LABORATORY DATA: Stable. Sodium, potassium, BUN, creatinine normal. WBC 5000 with 70% neutrophils . Abdomen is soft. NG tube drainage 125 mL q. 24 hours. ASSESSMENT AND PLAN: A 65-year-old gentleman with cancer of the stomach status post subtotal gastre ctomy, Otilio-en-Y, gastrojejunostomy, postoperative day #6. The patient has been stable since operat ion. Today, he started passing a little bit of gas. No bowel movement yet but otherwise is stable. PLAN: We will observe, and when he passes more gas, hopefully by tomorrow or bowel movement, then w e have to get a Gastrografin upper GI, and if everything is okay with no lesions and no obstruction, then we can start feeding the patient. Discussed with the patient and the nurse. Dictated By: JERRY LANIER MD PS/NTS Conf#: [id number] DID#: [id number]
--- NOTE | 2016-05-02 17:27 | PN ---
Date/Time of Note Date/Time of Note DATE: 05/02/16 TIME: 17:23 Assessment/Plan VTE Prophylaxis VTE Prophylaxis Intervention: SCD's Lines/Catheters IV Catheter Type (from Nrsg): Central Line Central line still needed: Yes Urinary Cath still in place: No Assessment/Plan Chief Complaint/Hosp Course Assessment/Plan 1. 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 Continue to follow up surgical recommendations. continue n.p.o. NG tube to low suction. Continue IV fluids. Continue Dilaudid JUVENILE OFFICER for pain. Incentive spirometer every hour while patient is awake. 2. Laryngeal carcinoma, status post radiation therapy. 3. Diet-controlled diabetes. Continue sequential compression device for deep venous thrombosis prophylaxis and Protonix for peptic ulcer disease prophylaxis. Further recommendations based on clinical course. Plan of care discussed with Dr. Hood. Problems: Subjective 24 Hr Interval Summary Free Text/Dictation Patient denies any nausea vomiting, pain is well controlled. Exam/Review of Systems Vital Signs Vitals Vital Signs Date Time Temp Pulse Resp B/P Pulse Ox O2 Delivery O2 Flow Rate FiO2 05/02/16 08:45 Nasal Cannula 2.0 05/02/16 07:00 98.7 71 20 118/66 95 Intake and Output 05/01/16 05/01/16 05/02/16 15:00 23:00 07:00 Intake Total 1000 ml 400 ml 1600 ml Output Total 985 ml 1920 ml Balance 1000 ml -585 ml -320 ml Exam Constitutional: alert, oriented Psych: no complaints Head: atraumatic, normocephalic Eyes: nl conjunctiva ENMT: nl external ears & nose Neck: non-tender, supple Respiratory: clear to auscultation, normal air movement Cardiovascular: nl pulses, regular rate and rhythm Gastrointestinal: other (Status post surgery), soft Musculoskeletal: nl extremities to inspection Extremities: normal pulses Neurological: COMPOSER TEACHING ARTIST II-XII intact Results Result Diagram: 05/02/1643905/02/16439 Results 24 hrs Laboratory Tests Test 05/02/16 04:40 Anion Gap 14 Basophils # 0.0 Basophils % 0.2 Blood Urea Nitrogen 11 Calcium Level 8.5 Carbon Dioxide Level 27 Chloride Level 103 Creatinine 0.65 Eosinophils # 0.1 Eosinophils % 2.0 Glucose Level 135 Hematocrit 35.1 L Hemoglobin 11.9 L Lymphocytes # 0.8 Lymphocytes % 16.7 Mean Corpuscular Hemoglobin 30.9 Mean Corpuscular Hemoglobin Concent 33.9 Mean Corpuscular Volume 91.2 Mean Platelet Volume 10.5 H Monocytes # 0.5 Monocytes % 9.9 Neutrophils # 3.5 Neutrophils % 70.8 Nucleated Red Blood Cells # 0.0 Nucleated Red Blood Cells % 0.0 Platelet Count 167 Potassium Level 3.7 Red Blood Count 3.85 L Red Cell Distribution Width 12.3 Sodium Level 140 White Blood Count 5.0 Medications Medications Current Medications Potassium Chloride/Dextrose/ Sod Cl (D5-1/2ns + KCl 20 Meq) 1,000 ml @ 150 mls/ hr Q6H40M IV Last administered on 05/02/16 15:09; Admin Dose 150 MLS/HR; Start 04/26/16 at 13:57 Pantoprazole (Protonix Iv) 40 mg BID@06,18 IV Last administered on 05/02/16 06 :28; Admin Dose 40 MG; Start 04/27/16 at 19:30 Ondansetron HCl (Zofran Inj) 4 mg Q6H PRN IV NAUSEA AND/OR VOMITING Last administered on 04/28/16 04:01; Admin Dose 4 MG; Start 04/28/16 at 04:00 Hydromorphone HCl (Dilaudid) 0.2 mg Q1H PRN IV PAIN LEVEL 1-5; Start 04/28/16 at 16:30 Hydromorphone HCl (Dilaudid) 0.6 mg Q2H PRN IV PAIN Last administered on 15:10; Admin Dose 0.6 MG; Start 04/29/16 at 15:00 KRYS RIVERA May 02, 2016 17:27
[2016-05-02 21:36] VITALS: BP 162/75; RESP 20
[2016-05-03] MEDS: HYDROmorphONE 1 MG/ML SYG IV PRN ×7 (00:40→21:37)
[2016-05-03] MEDS: D5W-0.45 NACL + KCL 20 MEQ 1,000 ML IV SCH ×3 (04:35→17:54)
[2016-05-03 05:04] LABS: ADD SCAN DIFF NO
[2016-05-03 05:28] LABS: BASOPHILS % 0.4 % (0.0-2.0); EOSINOPHILS # 0.1 10^3/ul (0.0-0.5); EOSINOPHILS % 2.5 % (0.0-7.0); HEMATOCRIT 36.5 % (42.0-52.0); HEMOGLOBIN 12.5 g/dl (14.0-18.0); LYMPHOCYTES # 1.1 10^3/ul (0.8-2.9); LYMPHOCYTES % 18.9 % (15.0-51.0); MEAN CORPUSCULAR HEMOGLOBIN 31.3 pg (29.0-33.0); MEAN CORPUSCULAR HGB CONC 34.2 g/dl (32.0-37.0); MEAN CORPUSCULAR VOLUME 91.5 fl (82.0-101.0); MEAN PLATELET VOLUME 10.2 fl (7.4-10.4); MONOCYTE # 0.5 10^3/ul (0.3-0.9); MONOCYTES % 9.5 % (0.0-11.0); NEUTROPHIL # 3.8 10^3/ul (1.6-7.5); NEUTROPHILS % 68.5 % (39.0-77.0); PLATELET COUNT 192 10^3/UL (140-415); RED BLOOD COUNT 3.99 10^6/ul (4.70-6.10); RED CELL DISTRIBUTION WIDTH 12.1 % (11.5-14.5); WHITE BLOOD COUNT 5.6 10^3/ul (4.8-10.8)
[2016-05-03 05:30] LABS: CREATININE 0.67 mg/dl (0.61-1.24)
[2016-05-03 05:31] LABS: CALCIUM 8.7 mg/dl (8.4-10.2)
[2016-05-03] MEDS: PANTOPRAZOLE 40 MG INJ IV SCH ×2 (05:35→17:54)
[2016-05-03 08:46] VITALS: BP 141/67; RESP 18
[2016-05-03 08:49] VITALS: BP 95/61; RESP 18
--- NOTE | 2016-05-03 14:20 | PN ---
Date/Time of Note Date/Time of Note DATE: 05/03/16 TIME: 14:19 Assessment/Plan Lines/Catheters IV Catheter Type (from Nrs): PICC Line Urinary Cath still in place: No Assessment/Plan Assessment/Plan 1. 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 Continue to follow up surgical recommendations. continue n.p.o. NG tube to low suction. Continue IV fluids. Continue Dilaudid CRIME LABORATORY ANALYST for pain. Incentive spirometer every hour while patient is awake. 2. Laryngeal carcinoma, status post radiation therapy. 3. Diet-controlled diabetes. Continue sequential compression device for deep venous thrombosis prophylaxis and Protonix for peptic ulcer disease prophylaxis. Further recommendations based on clinical course. Plan of care discussed with Dr. Hood. Exam/Review of Systems Vital Signs Vitals Vital Signs Date Time Temp Pulse Resp B/P Pulse Ox O2 Delivery O2 Flow Rate FiO2 05/03/16 08:49 98.0 63 18 95/61 100 05/02/16 21:00 Nasal Cannula 2.0 Intake and Output 05/02/16 05/02/16 05/03/16 15:00 23:00 07:00 Intake Total 1288 ml 1248 ml Output Total 1060 ml 1310 ml Balance 228 ml -62 ml Results Result Diagram: 05/03/16 0435 05/03/16 0435 Results 24 hrs Laboratory Tests Test 05/03/16 04:35 Anion Gap 15 Basophils # 0.0 Basophils % 0.4 Blood Urea Nitrogen 9 Calcium Level 8.7 Carbon Dioxide Level 28 Chloride Level 102 Creatinine 0.67 Eosinophils # 0.1 Eosinophils % 2.5 Glucose Level 132 Hematocrit 36.5 L Hemoglobin 12.5 L Lymphocytes # 1.1 Lymphocytes % 18.9 Mean Corpuscular Hemoglobin 31.3 Mean Corpuscular Hemoglobin Concent 34.2 Mean Corpuscular Volume 91.5 Mean Platelet Volume 10.2 Monocytes # 0.5 Monocytes % 9.5 Neutrophils # 3.8 Neutrophils % 68.5 Nucleated Red Blood Cells # 0.0 Nucleated Red Blood Cells % 0.0 Platelet Count 192 Potassium Level 4.0 Red Blood Count 3.99 L Red Cell Distribution Width 12.1 Sodium Level 141 White Blood Count 5.6 Medications Medications Current Medications Potassium Chloride/Dextrose/ Sod Cl (D5-1/2ns + KCl 20 Meq) 1,000 ml @ 150 mls/ hr Q6H40M IV Last administered on 05/03/16 11:32; Admin Dose 150 MLS/HR; Start 04/26/16 at 13:57 Pantoprazole (Protonix Iv) 40 mg BID@06,18 IV Last administered on 05/03/16 05 :35; Admin Dose 40 MG; Start 04/27/16 at 19:30 Ondansetron HCl (Zofran Inj) 4 mg Q6H PRN IV NAUSEA AND/OR VOMITING Last administered on 04/28/16 04:01; Admin Dose 4 MG; Start 04/28/16 at 04:00 Hydromorphone HCl (Dilaudid) 0.2 mg Q1H PRN IV PAIN LEVEL 1-5; Start 04/28/16 at 16:30 Hydromorphone HCl (Dilaudid) 0.6 mg Q2H PRN IV PAIN Last administered on 10:21; Admin Dose 0.6 MG; Start 04/29/16 at 15:00 RANDY CALL May 03, 2016 14:19
--- NOTE | 2016-05-03 17:28 | PN ---
DATE: 05/03/2016 Postop day #6 SUBJECTIVE: No new complaint. Has been passing a lot of gas. No bowel movement. OBJECTIVE: VITAL SIGNS: Stable, no fever. ABDOMEN: The patient has been passing frequent gases per rectum. No bowel movement yet Abdomen so ft, wound clean. EXTREMITIES: Legs no calf tenderness. LABORATORY DATA: WBC 5600, hemoglobin 12.5. BUN, creatinine within normal limits. ASSESSMENT: Postop day #6 status post subtotal gastrectomy for cancer of the stomach. The patient has been stable and is doing fine, has been passing gas since last night. PLAN: Proceed with the upper GI with Gastrografin tomorrow on Saturday and if everything is okay, the n we will remove the NG tube and start feeding the patient. Dictated By: JERRY LANIER MD PS/NTS Conf#: [id number] DID#: [id number]
[2016-05-03 20:09] VITALS: BP 156/74; RESP 20
[2016-05-04] MEDS: D5W-0.45 NACL + KCL 20 MEQ 1,000 ML IV SCH ×4 (00:50→23:06)
[2016-05-04] MEDS: HYDROmorphONE 1 MG/ML SYG IV PRN ×5 (00:53→20:21)
[2016-05-04 04:56] LABS: ADD SCAN DIFF NO
[2016-05-04 05:02] LABS: BASOPHILS % 0.2 % (0.0-2.0); EOSINOPHILS # 0.1 10^3/ul (0.0-0.5); EOSINOPHILS % 2.9 % (0.0-7.0); HEMATOCRIT 33.6 % (42.0-52.0); HEMOGLOBIN 11.5 g/dl (14.0-18.0); LYMPHOCYTES # 1.2 10^3/ul (0.8-2.9); LYMPHOCYTES % 27.3 % (15.0-51.0); MEAN CORPUSCULAR HEMOGLOBIN 31.4 pg (29.0-33.0); MEAN CORPUSCULAR HGB CONC 34.2 g/dl (32.0-37.0); MEAN CORPUSCULAR VOLUME 91.8 fl (82.0-101.0); MONOCYTE # 0.4 10^3/ul (0.3-0.9); MONOCYTES % 9.6 % (0.0-11.0); NEUTROPHIL # 2.7 10^3/ul (1.6-7.5); NEUTROPHILS % 59.6 % (39.0-77.0); PLATELET COUNT 174 10^3/UL (140-415); RED BLOOD COUNT 3.66 10^6/ul (4.70-6.10); RED CELL DISTRIBUTION WIDTH 12.1 % (11.5-14.5); WHITE BLOOD COUNT 4.5 10^3/ul (4.8-10.8)
[2016-05-04 05:16] LABS: POTASSIUM 3.9 mmol/L (3.5-5.1)
[2016-05-04 05:19] LABS: CREATININE 0.72 mg/dl (0.61-1.24)
[2016-05-04 05:20] LABS: CALCIUM 8.5 mg/dl (8.4-10.2)
[2016-05-04] MEDS: PANTOPRAZOLE 40 MG INJ IV SCH ×2 (05:24→18:08)
[2016-05-04 08:09] VITALS: BP 117/68; RESP 18
--- NOTE | 2016-05-04 12:17 | PN ---
DATE: 05/04/2016 Postoperative day #7. SUBJECTIVE: No complaint. Today had a Gastrografin upper GI, but it is not back in the computer ye t. OBJECTIVE VITAL SIGNS: Stable. No fever. LABORATORY DATA:. Stable. BUN, creatinine normal. WBC 4500. The patient has been passing gas toda y, but no bowel movement yet. Abdomen is soft, wound is clean and Nathaniel-Mathis is serosanguineous. ASSESSMENT: Postoperative day #7 subtotal gastrectomy. The patient is stable. Today we did a Gastrografin upper GI to see the anatomy of the anastomoses, and possible leak. If the report is normal, then we will remove the NG tube and start feeding the patient clear liquids. Dictated By: JERRY LANIER MD PS/TRAE Conf#: [id number] DID#: [id number]
--- NOTE | 2016-05-04 15:14 | PN ---
Date/Time of Note Date/Time of Note DATE: 05/04/16 TIME: 15:09 Assessment/Plan VTE Prophylaxis VTE Prophylaxis Intervention: SCD's Lines/Catheters IV Catheter Type (from Nrs): Central Line Central line still needed: Yes Urinary Cath still in place: No Assessment/Plan Chief Complaint/Hosp Course Assessment/Plan 1. 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 Continue to follow up surgical recommendations. continue n.p.o. NG tube to low suction. Continue IV fluids. Continue Dilaudid IT ASSOCIATE for pain. Incentive spirometer every hour while patient is awake. 2. Laryngeal carcinoma, status post radiation therapy. 3. Diet-controlled diabetes. Continue sequential compression device for deep venous thrombosis prophylaxis and Protonix for peptic ulcer disease prophylaxis. Further recommendations based on clinical course. Plan of care discussed with Dr. Hodo. Problems: Subjective 24 Hr Interval Summary Free Text/Dictation patient s/p Gastrografin upper GI study, pending results, pain is well controlled. Exam/Review of Systems Vital Signs Vitals Vital Signs Date Time Temp Pulse Resp B/P Pulse Ox O2 Delivery O2 Flow Rate FiO2 05/04/16 08:09 97.9 73 18 117/68 96 05/02/16 21:00 Nasal Cannula 2.0 Intake and Output 05/03/16 05/03/16 05/04/16 15:00 23:00 07:00 Intake Total 975 ml 850 ml 100 ml Output Total 2060 ml 1380 ml Balance 975 ml -1210 ml -1280 ml Exam Constitutional: alert, oriented Psych: no complaints Head: atraumatic, normocephalic Eyes: nl conjunctiva ENMT: nl external ears & nose Neck: non-tender, supple Respiratory: clear to auscultation, normal air movement Cardiovascular: nl pulses, regular rate and rhythm Gastrointestinal: other (Status post surgery), soft Musculoskeletal: nl extremities to inspection Extremities: normal pulses Neurological: PAVING BED MAKER II-XII intact Results Result Diagram: 05/04/1642405/04/16424 Results 24 hrs Laboratory Tests Test 05/04/16 04:25 Anion Gap 12 Basophils # 0.0 Basophils % 0.2 Blood Urea Nitrogen 9 Calcium Level 8.5 Carbon Dioxide Level 29 Chloride Level 104 Creatinine 0.72 Eosinophils # 0.1 Eosinophils % 2.9 Glucose Level 119 Hematocrit 33.6 L Hemoglobin 11.5 L Lymphocytes # 1.2 Lymphocytes % 27.3 Mean Corpuscular Hemoglobin 31.4 Mean Corpuscular Hemoglobin Concent 34.2 Mean Corpuscular Volume 91.8 Mean Platelet Volume 10.0 Monocytes # 0.4 Monocytes % 9.6 Neutrophils # 2.7 Neutrophils % 59.6 Nucleated Red Blood Cells # 0.0 Nucleated Red Blood Cells % 0.0 Platelet Count 174 Potassium Level 3.9 Red Blood Count 3.66 L Red Cell Distribution Width 12.1 Sodium Level 141 White Blood Count 4.5 L Medications Medications Current Medications Potassium Chloride/Dextrose/ Sod Cl (D5-1/2ns + KCl 20 Meq) 1,000 ml @ 150 mls/ hr Q6H40M IV Last administered on 05/04/16 07:55; Admin Dose 150 MLS/HR; Start 04/26/16 at 13:57 Pantoprazole (Protonix Iv) 40 mg BID@06,18 IV Last administered on 05/04/16 05 :24; Admin Dose 40 MG; Start 04/27/16 at 19:30 Ondansetron HCl (Zofran Inj) 4 mg Q6H PRN IV NAUSEA AND/OR VOMITING Last administered on 04/28/16 04:01; Admin Dose 4 MG; Start 04/28/16 at 04:00 Hydromorphone HCl (Dilaudid) 0.2 mg Q1H PRN IV PAIN LEVEL 1-5; Start 04/28/16 at 16:30 Hydromorphone HCl (Dilaudid) 0.6 mg Q2H PRN IV PAIN Last administered on 14:35; Admin Dose 0.6 MG; Start 04/29/16 at 15:00 KRYS RIVERA May 04, 2016 15:14
--- NOTE | 2016-05-04 16:23 | RADRPT ---
PROCEDURE: Upper GI series. CLINICAL INDICATION: Abdomen pain. Postop. TECHNIQUE: Gastrographin was administered via the nasogastric tube and several spot and overhead r adiographs were obtained. 0.2 minutes of fluoroscopy time was used. COMPARISON: No prior study is available for comparison. FINDINGS: The nasogastric tube tip is in the stomach. Midline vertical skin lu are present. A Nathaniel-P ratt drain is present in the upper abdomen. Contrast enters the gastric remnant which appears normal. Contrast gradually enters the anastomoses to the jejunum. There is no leak at this site. There is no gastroesophageal reflux. There is normal motility. IMPRESSION: 1. Partial gastrectomy. 2. No evidence of leak. RPTAT: QQ .Manuel Mera MD, MD Date Time Electronically viewed and signed by .Manuel Mera MD, on 05/04/2016 16:23 .R/
[2016-05-04 20:06] VITALS: BP 142/72; RESP 18
[2016-05-05] MEDS: HYDROmorphONE 1 MG/ML SYG IV PRN ×4 (01:48→18:53)
[2016-05-05] MEDS: D5W-0.45 NACL + KCL 20 MEQ 1,000 ML IV SCH ×3 (05:36→17:53)
[2016-05-05] MEDS: PANTOPRAZOLE 40 MG INJ IV SCH ×2 (05:36→17:53)
[2016-05-05 07:00] VITALS: BP 129/72; RESP 20
--- NOTE | 2016-05-05 11:56 | PN ---
Date/Time of Note Date/Time of Note DATE: 05/05/16 TIME: 11:55 Assessment/Plan VTE Prophylaxis VTE Prophylaxis Intervention: other Lines/Catheters IV Catheter Type (from Nrsg): Central Line Central line still needed: Yes Urinary Cath still in place: No Assessment/Plan Chief Complaint/Hosp Course 1. 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 Continue to follow up surgical recommendations. continue n.p.o. NG tube to low suction. Continue IV fluids. Continue Dilaudid CARDIAC SURGEON for pain. Incentive spirometer every hour while patient is awake. 2. Laryngeal carcinoma, status post radiation therapy. 3. Diet-controlled diabetes. Problems: Subjective 24 Hr Interval Summary Free Text/Dictation Patient is not in room, unable to interview Exam/Review of Systems Vital Signs Vitals Vital Signs Date Time Temp Pulse Resp B/P Pulse Ox O2 Delivery O2 Flow Rate FiO2 05/05/16 07:00 98.7 68 20 129/72 98 05/02/16 21:00 Nasal Cannula 2.0 Intake and Output 05/04/16 05/04/16 05/05/16 15:00 23:00 07:00 Intake Total 900 ml 1200 ml 2750 ml Output Total 1555 ml 2150 ml Balance 900 ml -355 ml 600 ml Exam Unable to examine as patient is not in room Results Result Diagram: 05/04/16 0425 05/04/16 0425 Medications Medications Current Medications Potassium Chloride/Dextrose/ Sod Cl (D5-1/2ns + KCl 20 Meq) 1,000 ml @ 150 mls/ hr Q6H40M IV Last administered on 05/05/16 05:36; Admin Dose 150 MLS/HR; Start 04/26/16 at 13:57 Pantoprazole (Protonix Iv) 40 mg BID@06,18 IV Last administered on 05/05/16 05 :36; Admin Dose 40 MG; Start 04/27/16 at 19:30 Ondansetron HCl (Zofran Inj) 4 mg Q6H PRN IV NAUSEA AND/OR VOMITING Last administered on 04/28/16 04:01; Admin Dose 4 MG; Start 04/28/16 at 04:00 Hydromorphone HCl (Dilaudid) 0.2 mg Q1H PRN IV PAIN LEVEL 1-5; Start 04/28/16 at 16:30 Hydromorphone HCl (Dilaudid) 0.6 mg Q2H PRN IV PAIN Last administered on t 09:18; Admin Dose 0.6 MG; Start 04/29/16 at 15:00 ESVIN [place] 18, 2017 11:56
--- NOTE | 2016-05-05 15:25 | PN ---
DATE: 05/05/2016 Postop day #8. SUBJECTIVE: Feels better, has tolerated a clear liquid diet. OBJECTIVE: VITAL SIGNS: Stable, no fever. Heart rate 68, blood pressure stable, saturation 98% on room air. ABDOMEN: Soft. The wound is clean. The Nathaniel-Mathis drainage is minimal, serosanguineous. DIAGNOSTIC DATA: Upper GI with Gastrografin was done last night revealed absence of leakage and als o drainage of the contrast from the gastric pouch into the jejunum. The patient has had 2 bowel movements since last night. ASSESSMENT: Status post distal gastrectomy and Otilio-en-Y gastrojejunostomy. The patient is stable. The x-ray showed absence of evidence of leak. NG tube was removed last night and started patient on clear liquid diet. So far has tolerated clear liquids. PLAN: Continue clear liquids until tomorrow morning. Tomorrow morning on Saturday start on full liqu id diet and if tolerated, then we will advance to soft diet on Saturday. Dictated By: JERRY DNUCAN/TRAE Conf#: [id number] DID#: [id number]
[2016-05-05 19:52] VITALS: BP 139/63; RESP 20
[2016-05-05] MEDS ORDERED: ACETAMINOPHEN 325 MG TAB PO PRN (23:00)
[2016-05-06] MEDS: D5W-0.45 NACL + KCL 20 MEQ 1,000 ML IV SCH ×5 (00:37→17:21)
[2016-05-06 01:01] VITALS: BP 131/72; PULSE 76; RESP 18
[2016-05-06] MEDS: PANTOPRAZOLE 40 MG INJ IV SCH ×2 (06:05→17:20)
[2016-05-06 06:42] VITALS: BP 143/81; PULSE 88; RESP 18
[2016-05-06 08:43] VITALS: BP 117/61; RESP 18
--- NOTE | 2016-05-06 12:03 | PN ---
Date/Time of Note Date/Time of Note DATE: 05/06/16 TIME: 12:03 Assessment/Plan VTE Prophylaxis VTE Prophylaxis Intervention: other Lines/Catheters IV [facility]from [facility] Peripheral IV Urinary Cath still in place: No Assessment/Plan Chief Complaint/Hosp Course 1. 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 Continue to follow up surgical recommendations. continue n.p.o. NG tube to low suction. Continue IV fluids. Continue Dilaudid RN DIALYSIS for pain. Incentive spirometer every hour while patient is awake. 2. Laryngeal carcinoma, status post radiation therapy. 3. Diet-controlled diabetes. Problems: Subjective 24 Hr Interval Summary Free Text/Dictation Patient feels hungry, is on clear liquid diet Exam/Review of Systems Vital Signs Vitals Vital Signs Date Time Temp Pulse Resp B/P Pulse Ox O2 Delivery O2 Flow Rate FiO2 05/06/16 08:43 98.2 76 18 117/61 97 05/06/16 06:42 Room Air 05/02/16 21:00 2.0 Intake and Output 05/05/16 05/05/16 05/06/16 15:00 23:00 07:00 Intake Total 2380 ml 2350 ml Output Total 1605 ml 1453 ml Balance 775 ml 897 ml Exam Constitutional: well developed Head: atraumatic, normocephalic Neck: supple Respiratory: clear to auscultation Cardiovascular: regular rate and rhythm Gastrointestinal: non-tender, soft Results Result Diagram: 05/04/16 0425 05/04/16 0425 Medications Medications Current Medications Potassium Chloride/Dextrose/ Sod Cl (D5-1/2ns + KCl 20 Meq) 1,000 ml @ 150 mls/ hr Q6H40M IV Last administered on 05/06/16 09:52; Admin Dose 150 MLS/HR; Start 04/26/16 at 13:57 Pantoprazole (Protonix Iv) 40 mg BID@06,18 IV Last administered on 05/06/16 06 :05; Admin Dose 40 MG; Start 04/27/16 at 19:30 Ondansetron HCl (Zofran Inj) 4 mg Q6H PRN IV NAUSEA AND/OR VOMITING Last administered on 04/28/16 04:01; Admin Dose 4 MG; Start 04/28/16 at 04:00 Hydromorphone HCl (Dilaudid) 0.2 mg Q1H PRN IV PAIN LEVEL 1-5; Start 04/28/16 at 16:30 Hydromorphone HCl (Dilaudid) 0.6 mg Q2H PRN IV PAIN Last administered on t 18:53; Admin Dose 0.6 MG; Start 04/29/16 at 15:00 Acetaminophen (Tylenol Tab) 650 mg Q6H PRN PO PAIN AND OR ELEVATED TEMP; Start 05/05/16 at 23:00 ESVIN SWEENEY May 06, 2016 12:03
--- NOTE | 2016-05-06 18:34 | PN ---
DATE: 05/06/2016 SUBJECTIVE: Status post subtotal gastrectomy for cancer of the stomach. No complaint, has tolerate d clear liquids. Has had 3 liquid bowel movements. Apparently last night had temperature up to 100 .6. Today, temperature 98.2. No nausea, no vomiting. OBJECTIVE: VITAL SIGNS: 98.2, 76, 18, 117/61 blood pressure, saturation 95% room air. ABDOMEN: Soft. Wound is clean. Nathaniel-Mathis minimal drainage, actually 8 mL drainage, serosangui neous. LABORATORY DATA: No labs today. PLAN: Start on full liquid diet and observe for tolerance. If tolerated, tomorrow we will advance to soft diet. Recheck her CBC tomorrow. Dictated By: JERRY LANIER MD PS/TRAE Conf#: [id number] DID#: [id number]
[2016-05-06 20:00] VITALS: BP 132/64; RESP 18
[2016-05-06] MEDS: HYDROmorphONE 1 MG/ML SYG IV PRN (20:36)
[2016-05-07] MEDS: D5W-0.45 NACL + KCL 20 MEQ 1,000 ML IV SCH ×4 (01:04→16:37)
[2016-05-07 05:07] LABS: ADD SCAN DIFF NO
[2016-05-07 05:19] LABS: BASOPHILS % 0.2 % (0.0-2.0); EOSINOPHILS # 0.1 10^3/ul (0.0-0.5); EOSINOPHILS % 1.1 % (0.0-7.0); HEMATOCRIT 32.8 % (42.0-52.0); LYMPHOCYTES % 12.6 % (15.0-51.0); MEAN CORPUSCULAR HEMOGLOBIN 31.1 pg (29.0-33.0); MEAN CORPUSCULAR HGB CONC 33.5 g/dl (32.0-37.0); MEAN CORPUSCULAR VOLUME 92.7 fl (82.0-101.0); MEAN PLATELET VOLUME 10.6 fl (7.4-10.4); MONOCYTE # 0.4 10^3/ul (0.3-0.9); MONOCYTES % 5.2 % (0.0-11.0); NEUTROPHIL # 6.6 10^3/ul (1.6-7.5); NEUTROPHILS % 80.5 % (39.0-77.0); PLATELET COUNT 204 10^3/UL (140-415); RED BLOOD COUNT 3.54 10^6/ul (4.70-6.10); RED CELL DISTRIBUTION WIDTH 12.3 % (11.5-14.5); WHITE BLOOD COUNT 8.2 10^3/ul (4.8-10.8)
[2016-05-07] MEDS: PANTOPRAZOLE 40 MG INJ IV SCH ×2 (05:31→17:59)
[2016-05-07 05:44] LABS: POTASSIUM 3.8 mmol/L (3.5-5.1)
[2016-05-07 05:46] LABS: CREATININE 0.75 mg/dl (0.61-1.24)
[2016-05-07 05:47] LABS: CALCIUM 8.4 mg/dl (8.4-10.2)
[2016-05-07] MEDS: HYDROmorphONE 1 MG/ML SYG IV PRN ×2 (06:09→18:05)
[2016-05-07 08:25] VITALS: BP 130/65; RESP 18
--- NOTE | 2016-05-07 17:17 | PN ---
DATE: 05/07/2016 SUBJECTIVE: Postoperative day #11. No complaint. Has tolerated full liquid diet and has had bowel movement and slightly ____, no fever. OBJECTIVE VITAL SIGNS: Stable, afebrile. LABORATORY DATA: WBC 8200 with 80% segmented? Hemoglobin 11, hematocrit 32.8. Chemistry within no rmal limits. Abdomen soft. Nathaniel-Mathis drainage, 8 mL. Legs no calf tenderness. ASSESSMENT: Status post subtotal gastrectomy for cancer of the stomach. The patient is doing fine, tolerating full liquid diet today. We are going to advance to soft diet and if the patient tolerat es, the patient can be discharged today. Followed up by Dr. Villegas in his office. Dictated By: JERRY LANIER MD PS/TRAE Conf#: [id number] DID#: [id number]
--- NOTE | 2016-05-07 17:43 | PN ---
Date/Time of Note Date/Time of Note DATE: 05/07/16 TIME: 17:41 Assessment/Plan VTE Prophylaxis VTE Prophylaxis Intervention: SCD's Lines/Catheters IV Catheter Type (from Nrs): Central Line Central line still needed: Yes Urinary Cath still in place: No Assessment/Plan Chief Complaint/Hosp Course Assessment/Plan 1. 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 Continue to follow up surgical recommendations. Diet advanced to soft. 2. Laryngeal carcinoma, status post radiation therapy. 3. Diet-controlled diabetes. Continue sequential compression device for deep venous thrombosis prophylaxis and Protonix for peptic ulcer disease prophylaxis. Further recommendations based on clinical course. Plan of care discussed with Dr. Hood. Problems: Subjective 24 Hr Interval Summary Free Text/Dictation Pt denies N/V, Had BM in AM, complains of abd pain which is not new. Exam/Review of Systems Vital Signs Vitals Vital Signs Date Time Temp Pulse Resp B/P Pulse Ox O2 Delivery O2 Flow Rate FiO2 05/07/16 08:25 97.6 69 18 130/65 97 05/06/16 06:42 Room Air Intake and Output 05/06/16 05/06/16 05/07/16 15:00 23:00 07:00 Intake Total 500 ml 800 ml 2150 ml Output Total 1203 ml 1255 ml Balance 500 ml -403 ml 895 ml Exam Constitutional: alert, oriented Psych: no complaints Head: atraumatic, normocephalic Eyes: nl conjunctiva ENMT: nl external ears & nose Neck: non-tender, supple Respiratory: clear to auscultation, normal air movement Cardiovascular: nl pulses, regular rate and rhythm Gastrointestinal: other (Status post surgery), soft Musculoskeletal: nl extremities to inspection Extremities: normal pulses Neurological: CHEMICAL ANALYST II-XII intact Results Result Diagram: 05/07/1642405/07/16 042 Results 24 hrs Laboratory Tests Test 05/07/16 04:25 Anion Gap 13 Basophils # 0.0 Basophils % 0.2 Blood Urea Nitrogen 7 Calcium Level 8.4 Carbon Dioxide Level 27 Chloride Level 105 Creatinine 0.75 Eosinophils # 0.1 Eosinophils % 1.1 Glucose Level 151 Hematocrit 32.8 L Hemoglobin 11.0 L Lymphocytes # 1.0 Lymphocytes % 12.6 L Mean Corpuscular Hemoglobin 31.1 Mean Corpuscular Hemoglobin Concent 33.5 Mean Corpuscular Volume 92.7 Mean Platelet Volume 10.6 H Monocytes # 0.4 Monocytes % 5.2 Neutrophils # 6.6 Neutrophils % 80.5 H Nucleated Red Blood Cells # 0.0 Nucleated Red Blood Cells % 0.0 Platelet Count 204 Potassium Level 3.8 Red Blood Count 3.54 L Red Cell Distribution Width 12.3 Sodium Level 141 White Blood Count 8.2 # Medications Medications Current Medications Potassium Chloride/Dextrose/ Sod Cl (D5-1/2ns + KCl 20 Meq) 1,000 ml @ 150 mls/ hr Q6H40M IV Last administered on 05/07/16 07:44; Admin Dose 150 MLS/HR; Start 04/26/16 at 13:57 Pantoprazole (Protonix Iv) 40 mg BID@06,18 IV Last administered on 05/07/16 05 :31; Admin Dose 40 MG; Start 04/27/16 at 19:30 Ondansetron HCl (Zofran Inj) 4 mg Q6H PRN IV NAUSEA AND/OR VOMITING Last administered on 04/28/16 04:01; Admin Dose 4 MG; Start 04/28/16 at 04:00 Hydromorphone HCl (Dilaudid) 0.2 mg Q1H PRN IV PAIN LEVEL 1-5 Last administered on 05/07/16 06:09; Admin Dose 0.2 MG; Start 04/28/16 at 16:30 Hydromorphone HCl (Dilaudid) 0.6 mg Q2H PRN IV PAIN Last administered on 18:53; Admin Dose 0.6 MG; Start 04/29/16 at 15:00 Acetaminophen (Tylenol Tab) 650 mg Q6H PRN PO PAIN AND OR ELEVATED TEMP; Start 05/05/16 at 23:00 Acetaminophen/ Hydrocodone Bitart (Brook (5/325)) 1 tab Q4H PRN PO PAIN; Start 05/07/16 at 18:00; Status KRYS HOFFMAN May 07, 2016 17:43
[2016-05-07] MEDS ORDERED: HYDROCODONE/APAP (5/325) TAB PO PRN (18:00)
[2016-05-07] MEDS ORDERED: HYDR-3498 PO (18:04)
[2016-05-07 20:05] VITALS: BP 134/72; PULSE 72; RESP 18
== END 2016-05-07 21:00 | disposition home or self-care (01) | DRG 328 ==
LOC: REC 08:24 → MS1 16:45
PROVIDERS: ADMIT Surgery Surgical Oncology; ATTEND Surgery Surgical Oncology
PROC: 0DB70ZZ Excision of Stomach, Pylorus, Open Approach (ICD-10-PCS; 2016-04-26)
PROC: 0D160ZA Bypass Stomach to Jejunum, Open Approach (ICD-10-PCS; principal; 2016-04-26 10:30)
DX: C16.4 Malignant neoplasm of pylorus (principal); E11.9 Type 2 diabetes mellitus without complications; Z85.01 Personal history of malignant neoplasm of esophagus; Z87.891 Personal history of nicotine dependence
CPT/HCPCS: 71010; 74240; 80048; 82962; 85025; 85610; 85730; 87086; 88305; 88307; 93005; C9113; J0295; J0360; J1100; J1170; J1200; J1644; J1885; J2250; J2274; J2370; J2405; J2710; J3010; J3480

== ENCOUNTER 2016-05-10 07:58 | Emergency (ER) | payer OTHER ==
[~2016-05-10] VITALS: Ht 165.1 cm; Wt 69.5 kg
[~2016-05-10 07:58] MED LIST changes: +HYDR-3498 PO; -ROCURONIUM 50 MG INJ ONE; -[UNRECOGNIZED DRUG - REMARK]
[2016-05-10 08:02] VITALS: Ht 165.1 cm; Wt 69.5 kg
[2016-05-10] MEDS ORDERED: SOD CHLORIDE 0.9% 1,000 ML IV STA (08:08)
[2016-05-10 08:47] LABS: ADD SCAN DIFF NO
[2016-05-10 08:52] LABS: BASOPHILS % 0.3 % (0.0-2.0); EOSINOPHILS # 0.1 10^3/ul (0.0-0.5); EOSINOPHILS % 1.3 % (0.0-7.0); HEMATOCRIT 35.7 % (42.0-52.0); HEMOGLOBIN 12.3 g/dl (14.0-18.0); LYMPHOCYTES # 0.7 10^3/ul (0.8-2.9); LYMPHOCYTES % 10.1 % (15.0-51.0); MEAN CORPUSCULAR HEMOGLOBIN 31.9 pg (29.0-33.0); MEAN CORPUSCULAR HGB CONC 34.5 g/dl (32.0-37.0); MEAN CORPUSCULAR VOLUME 92.7 fl (82.0-101.0); MEAN PLATELET VOLUME 9.9 fl (7.4-10.4); MONOCYTE # 0.5 10^3/ul (0.3-0.9); MONOCYTES % 6.9 % (0.0-11.0); NEUTROPHIL # 5.4 10^3/ul (1.6-7.5); NEUTROPHILS % 81.1 % (39.0-77.0); PLATELET COUNT 256 10^3/UL (140-415); RED BLOOD COUNT 3.85 10^6/ul (4.70-6.10); RED CELL DISTRIBUTION WIDTH 12.4 % (11.5-14.5); WHITE BLOOD COUNT 6.7 10^3/ul (4.8-10.8)
[2016-05-10 09:02] LABS: ALBUMIN 3.3 g/dl (3.3-4.9)
[2016-05-10 09:03] LABS: POTASSIUM 3.9 mmol/L (3.5-5.1)
[2016-05-10 09:05] LABS: ALBUMIN/GLOBULIN RATIO 1.17; BILIRUBIN,INDIRECT 0.7 mg/dl (0-1.1); BILIRUBIN,TOTAL 0.7 mg/dl (0.2-1.3); CREATININE 0.77 mg/dl (0.61-1.24); TOTAL PROTEIN 6.1 g/dl (6.1-8.1)
[2016-05-10] MEDS ORDERED: CEFTRIAXONE 1 GM/50 ML (PMX) 50 ML IVPB ONE (10:00)
[2016-05-10 10:22] LABS: ADD UMIC NO; URINE BILIRUBIN (Dip) NEGATIVE (NEGATIVE); URINE BLOOD (Dip) NEGATIVE (NEGATIVE); URINE COLOR LT. YELLOW (YELLOW); URINE GLUCOSE (Dip) NEGATIVE (NEGATIVE); URINE KETONES (Dip) TRACE (NEGATIVE); URINE LEUKOCYTE ESTERASE (Dip) NEGATIVE (NEGATIVE); URINE NITRITE (Dip) NEGATIVE (NEGATIVE); URINE TOTAL PROTEIN (Dip) NEGATIVE (NEGATIVE); URINE UROBILINOGEN (Dip) 0.2 E.U./dL (0.1-1.0)
--- NOTE | 2016-05-10 11:17 | ERD ---
ER Documentation Chief Complaint Date/Time DATE: 05/10/16 TIME: 11:16 Chief Complaint DRAINING SURGICAL SITE,S/P ABDOMINAL SX,HX GASTRIC CANCER HPI This is a 65-year-old male presents to the emergency room for evaluation of mild fluid drained from the surgical site. The patient does state that he had surgery in his abdomen in March. He states that his surgeon was Dr. Ireland. The patient states that today he woke up and noticed some blood on the shoulder. He states that he noticed an area of redness around his abdomen and came to the emergency room for evaluation. The patient denies any fevers or chills. ROS All systems reviewed and are negative except as per history of present illness. Medications Home Meds Discontinued Reported Medications Omeprazole* (Omeprazole*) 20 Mg Capsule.dr, 20 MG PO DAILY, CAP 12/30/14 Discontinued Scripts Hydrocodone Bit-Acetaminophen (Hydrocodone Bit-APAP) 5-325MG Tablet, 1 TAB PO Q4H Y for PAIN, #30 TAB Prov:KRYS RIVERA 05/07/16 Allergies Allergies: Coded Allergies: No Known Allergy (Unverified , 05/10/16) PMhx/Soc History of Surgery: Yes (carpal tunnel surgeries, throat biopsy) Anesthesia Reaction: No Hx Neurological Disorder: No Hx Respiratory Disorders: No Hx Cardiac Disorders: No Hx Psychiatric Problems: No Hx Miscellaneous Medical Probl: No Hx Alcohol Use: Yes (occasional) Hx Substance Use: No Hx Tobacco Use: Yes (quit 3years ago) Smoking Status: Never smoker Physical Exam Vitals Vital Signs Date Time Temp Pulse Resp B/P Pulse Ox O2 Delivery O2 Flow Rate FiO2 05/10/16 08:02 98.1 70 18 128/65 98 Physical Exam INITIAL VITAL SIGNS: Reviewed by me GENERAL: The patient is well developed and appropriate for usual state of health in no apparent distress HEENT: Pupils equal, round, and reactive to light. EOMI. There is no scleral icterus. NECK: C-spine is soft and supple, there is no meningismus. There is no cervical lymphadenopathy. LUNGS: Clear to auscultation bilaterally. There are no rales, wheezes or rhonchi. HEART: Regular rate and rhythm, no murmurs, clicks, rubs or gallops. ABDOMEN: Soft, non-tender, non-distended. There are bowel sounds in all four quadrants. No rebound or guarding. EXTREMITIES: There is no peripheral cyanosis or edema. No focal swelling or erythema. NEUROLOGICAL: The patient moves all four extremities with 5/5 strength. Cranial nerves II - XII are intact. Normal gait. Alert and oriented SKIN: Small area of erythema noted over the vertical incision site which is periumbilical. Mild serosanguineous discharge, no purulent drainage. There is no apparent rash or petechiae. HEME/LYMPHATIC: There is no evidence of excessive bruising or lymphedema. PSYCHIATRIC: The patient does not appear anxious or depressed. Result Diagram: 05/10/16 0819 05/10/16 0819 Results 24 hrs Laboratory Tests Test 05/10/16 08:19 05/10/16 09:18 White Blood Count 6.710^3/ul Red Blood Count 3.8510^6/ul Hemoglobin 12.3g/dl Hematocrit 35.7% Mean Corpuscular Volume 92.7fl Mean Corpuscular Hemoglobin 31.9pg Mean Corpuscular Hemoglobin Concent 34.5g/dl Red Cell Distribution Width 12.4% Platelet Count 19922^3/UL Mean Platelet Volume 9.9fl Neutrophils % 81.1% Lymphocytes % 10.1% Monocytes % 6.9% Eosinophils % 1.3% Basophils % 0.3% Nucleated Red Blood Cells % 0.0/100WBC Neutrophils # 5.410^3/ul Lymphocytes # 0.710^3/ul Monocytes # 0.510^3/ul Eosinophils # 0.110^3/ul Basophils # 0.010^3/ul Nucleated Red Blood Cells # 0.010^3/ul Sodium Level 142mmol/L Potassium Level 3.9mmol/L Chloride Level 102mmol/L Carbon Dioxide Level 29mmol/L Anion Gap 15 Blood Urea Nitrogen 18mg/dl Creatinine 0.77mg/dl Glucose Level 145mg/dl Calcium Level 9.0mg/dl Total Bilirubin 0.7mg/dl Direct Bilirubin 0.00mg/dl Indirect Bilirubin 0.7mg/dl Aspartate Amino Transf (AST/SGOT) 22IU/L Alanine Aminotransferase (ALT/SGPT) 30IU/L Alkaline Phosphatase 97IU/L Total Protein 6.1g/dl Albumin 3.3g/dl Globulin 2.80g/dl Albumin/Globulin Ratio 1.17 Lipase 296U/L Urine Color LT. YELLOW Urine Clarity CLEAR Urine pH 6.0 Urine Specific [place] 1.015 Urine Ketones TRACE Urine Nitrite NEGATIVE Urine Bilirubin NEGATIVE Urine Urobilinogen 0.2 E.U./dL Urine Leukocyte Esterase NEGATIVE Urine Hemoglobin NEGATIVE Urine Glucose NEGATIVE% Urine Total Protein NEGATIVE Current Medications Medications (Trade) Dose Ordered Sig/Shaan Route PRN Reason Start Time Stop Time Status Last Admin Dose Admin Sodium Chloride 1,000 ml @ 1,000 mls/hr Q1H STAT IV 05/10/16 08:08 05/10/16 09:07 DC 05/10/16 08:26 Ceftriaxone Sodium (Rocephin) 50 ml @ 100 mls/hr ONCE ONCE IVPB 05/10/16 10:00 05/10/16 10:29 DC 05/10/16 10:35 Procedures/MDM This 65-year-old male presents to the emergency room for evaluation of drainage from his surgical site. This patient is status post partial gastrectomy done in March by Dr. Villegas. When I evaluated this patient he had a small area of cellulitis around his incision site. I did obtain lab work which was normal. Urinalysis is also normal. I called Dr. Villegas who stated that his partner, Dr. dobbs would evaluate this patient. I spoke to Dr. Jauregui he who agreed to come and evaluate this patient at bedside. He did partially open the wound and stated he had mild purulent drainage. The patient had a wound culture obtained and sent to lab. The patient is afebrile at this time, no leukocytosis. Patient was given 1 g Rocephin in the emergency room and will be discharged home with a prescription for Bactrim, Keflex with instructions to follow-up with Dr. Ireland on Saturday05/15/15 Departure Diagnosis: Primary Impression: Abdominal wall cellulitis Additional Impressions: Postoperative infection Normocytic anemia Condition: Stable GERARD GROSS DO May 10, 2016 11:17
[2016-05-10] MEDS ORDERED: CEPH-443 PO (11:24)
[2016-05-10] MEDS ORDERED: BACTDS PO (11:24)
== END 2016-05-10 11:57 | disposition home or self-care (01) ==
LOC: E/R 07:58
DX: L03.311 Cellulitis of abdominal wall (principal); D64.9 Anemia, unspecified; E11.9 Type 2 diabetes mellitus without complications; Y73.3 Surgical instruments, materials and gastroenterology and urology devices (including sutures) associated with adverse incidents; Z85.028 Personal history of other malignant neoplasm of stomach; Z87.891 Personal history of nicotine dependence
CPT/HCPCS: 80053; 81003; 83690; 85025; 87070; J0696; J7030; 36415; 96374

== ENCOUNTER 2016-05-11 22:00 | Emergency (ER) | payer OTHER ==
[~2016-05-11] VITALS: Ht 162.6 cm; Wt 70.0 kg
[~2016-05-11 22:00] MED LIST changes: +BACTDS PO; +CEPH-443 PO; -HYDR-3498 PO; -OMEP20CA16 PO
[2016-05-11 22:03] VITALS: Ht 162.6 cm; Wt 70.0 kg
--- NOTE | 2016-05-12 00:16 | ERD ---
ER Documentation Chief Complaint Date/Time DATE: 05/12/16 TIME: 00:10 Chief Complaint post op 2 weeks ago requesting to check postop wound, denies pain HPI 65-year-old male with a past medical history of prediabetes and gastric cancer status post subtotal gastrectomy on April 26, [address] Farrell presents to the ED for a postsurgical wound check. Patient was seen here yesterday for similar symptoms of drainage from the surgical site. The son states that there is more surgical discharge at this time due to Dr. Cuevas opening the wound yesterday for better drainage of the site. Patient denies any fever, chills, abdominal pain, nausea, vomiting, constipation, chest pain, shortness of breath, dysuria, cough. Patient states that he is taking the Bactrim and Keflex prescribed yesterday. ROS All systems reviewed and are negative except as per history of present illness. Medications Home Meds Active Scripts Sulfamethoxazole-Trimethoprim* (Bactrim* DS) 800-160 Mg Tab, 1 TAB PO BID for 10 Days, TAB Prov:GERARD GROSS DO 05/10/16 Cephalexin* (Keflex*) 500 Mg Capsule, 500 MG PO QID for 10 Days, CAP Prov:GERARD GROSS DO 05/10/16 Discontinued Reported Medications Omeprazole* (Omeprazole*) 20 Mg Capsule.dr, 20 MG PO DAILY, CAP 12/30/14 Discontinued Scripts Hydrocodone Bit-Acetaminophen (Hydrocodone Bit-APAP) 5-325MG Tablet, 1 TAB PO Q4H Y for PAIN, #30 TAB Prov:KRYS RIVERA 05/07/16 Allergies Allergies: Coded Allergies: No Known Allergy (Unverified , 05/10/16) PMhx/Soc History of Surgery: Yes (carpal tunnel surgeries, throat biopsy; PARTIAL GASTRECTOMY) Anesthesia Reaction: No Hx Neurological Disorder: No Hx Respiratory Disorders: No Hx Cardiac Disorders: No Hx Psychiatric Problems: No Hx Miscellaneous Medical Probl: Yes (PRE-DM) Hx Alcohol Use: Yes (occasional) Hx Substance Use: No Hx Tobacco Use: No (quit 3years ago) Smoking Status: Former smoker Physical Exam Vitals Vital Signs Date Time Temp Pulse Resp B/P Pulse Ox O2 Delivery O2 Flow Rate FiO2 05/11/16 22:03 98.2 75 20 136/86 98 Physical Exam Const: Hue-kga-ysboopwwf, well-nourished. In no acute distress. Head: Atraumatic, normocephalic Eyes: Normal Conjunctiva without injection. No purulent discharge. ENT: Normal external ear, nose. Moist oropharynx without tonsillar exudates. Non -erythematous pharynx. Uvula midline. No drooling. No trismus. Neck: No cervical midline tenderness. Full range of motion. No meningismus. No cervical lymphadenopathy. No JVD. Resp: Clear to auscultation bilaterally. No wheezing, rhonchi, rales, or crackles. No accessory muscle use. No retractions. Cardio: Regular rate and rhythm. No murmurs, rubs or gallops. Abd: Soft, 12 cm vertical postsurgical incision with 2 cm opening with spontaneous serosanguineous drainage noted. No surrounding fluctuance, erythema , edema, bleeding noted. non distended. Normal bowel sounds. No palpable masses. No rebound tenderness. No guarding. Negative McBurney's point. Negative psoas sign. Negative obturator sign. Skin: No petechiae or rashes Back: No midline tenderness. No CVA tenderness. Ext: No cyanosis, or edema. Neur: Awake and alert. Normal gait. Normal coordination. Psych: Normal Mood and Affect Procedures/MDM This is a 65-year-old male with a status post subtotal gastrectomy due to gastric cancer and prediabetes presenting to the ED complaining of drainage noted in his postsurgical site. Patient is afebrile and nontoxic-appearing. Patient is not complaining of any abdominal pain, nausea, vomiting or fever. Patient at this time was reassured that since Dr. Cuevas who partially open the wound, it essentially caused more purulent discharge to drain. There is low suspicion for deep space infection, acute abdomen, postop complication, sepsis or other emergent conditions at this time. This case was discussed with my supervising physician, Dr. Bae who stated that patient can be managed on outpatient basis. Patient stated that he has a follow-up appointment on Saturday , May 15, [address] Villegas. I strictly instructed patient to follow-up with Dr. Villegas at this time. Instructed patient to return to the ED sooner for any worsening symptoms. Patient's questions were answered. Patient understood and agreed with discharge plan. Patient discharged stable. Departure Diagnosis: Primary Impression: Encounter for post surgical wound check Condition: Stable Patient Instructions: Post Op Wound Check, General, Post Op Wound Check, Infection Referrals: [facility] YOU HAVE RECEIVED A MEDICAL SCREENING EXAM AND THE RESULTS INDICATE THAT YOU DO NOT HAVE A CONDITION THAT REQUIRES URGENT TREATMENT IN THE EMERGENCY DEPARTMENT. FURTHER EVALUATION AND TREATMENT OF YOUR CONDITION CAN WAIT UNTIL YOU ARE SEEN IN YOUR DOCTORS OFFICE WITHIN THE NEXT 1-2 DAYS. IT IS YOUR RESPONSIBILITY TO MAKE AN APPOINTMENT FOR FOLOW-UP CARE. IF YOU HAVE A PRIMARY DOCTOR --you should call your primary doctor and schedule an appointment IF YOU DO NOT HAVE A PRIMARY DOCTOR YOU CAN CALL OUR PHYSICIAN REFERRAL HOTLINE AT IF YOU CAN NOT AFFORD TO SEE A PHYSICIAN YOU CAN CHOSE FROM THE FOLLOWING [facility] [address] [facility] [address] [facility] [address] [facility] [address] [facility] [address] [facility] [facility] [address] [facility] [facility] YOU HAVE RECEIVED A MEDICAL SCREENING EXAM AND THE RESULTS INDICATE THAT YOU DO NOT HAVE A CONDITION THAT REQUIRES URGENT TREATMENT IN THE EMERGENCY DEPARTMENT. FURTHER EVALUATION AND TREATMENT OF YOUR CONDITION CAN WAIT UNTIL YOU ARE SEEN IN YOUR DOCTORS OFFICE WITHIN THE NEXT 1-2 DAYS. IT IS YOUR RESPONSIBILITY TO MAKE AN APPOINTMENT FOR FOLOW-UP CARE. IF YOU HAVE A PRIMARY DOCTOR --you should call your primary doctor and schedule and appointment IF YOU DO NOT HAVE A PRIMARY DOCTOR YOU CAN CALL OUR PHYSICIAN REFERRAL HOTLINE AT . IF YOU CAN NOT AFFORD TO SEE A PHYSICIAN YOU CAN CHOSE FROM THE FOLLOWING [facility]: [facility] [address] [place] [address] [facility] [address] [place] [address] [facility] [address] [place] [address] [facility] URGENT C[facility]/SPECIALTIES Additional Instructions: Complete the course of antibiotics prescribed. FOLLOW UP WITH Dr. Villegas, surgeon on Saturday05/14/16. Return to this facility if you are not improving as expected. MORIS CURIEL PA-C May 12, 2016 00:16
[2016-05-13] MEDS ORDERED: BEN25 PO (07:48)
== END 2016-05-12 00:45 | disposition home or self-care (01) ==
LOC: FTE 22:00
DX: Z48.01 Encounter for change or removal of surgical wound dressing (principal); E11.9 Type 2 diabetes mellitus without complications; Z87.891 Personal history of nicotine dependence; Z79.84 Long term (current) use of oral hypoglycemic drugs
CPT/HCPCS: 99281

== ENCOUNTER 2016-05-13 05:24 | Emergency (ER) | payer OTHER ==
[~2016-05-13] VITALS: Wt 68.5 kg
[2016-05-13] MEDS ORDERED: BEN25 PO (07:48)
--- NOTE | 2016-05-13 07:52 | ERD ---
ER Documentation Chief Complaint Date/Time DATE: 05/13/16 TIME: 07:49 Chief Complaint s/p gastrectomy 04/26/16, states still with wound drainage, wants check up HPI This is a 65-year-old male presents to the emergency room for evaluation of mild fluid drained from the surgical site with itchiness. The patient does state that he had surgery in his abdomen in March. He states that his surgeon was Dr. Ireland and he has appointment with Dr. Farrell tomorrow.. He is currently taking Bactrim and Keflex as prescribed and does not have pain but only itchiness around the site. ROS All systems reviewed and are negative except as per history of present illness. Medications Home Meds Active Scripts Diphenhydramine Hcl* (Benadryl*) 25 Mg Cap, 25 MG PO Q6, #30 CAP Prov:FELICITAS KIM PA-C 05/13/16 Sulfamethoxazole-Trimethoprim* (Bactrim* DS) 800-160 Mg Tab, 1 TAB PO BID for 10 Days, TAB Prov:GERARD GROSS DO 05/10/16 Cephalexin* (Keflex*) 500 Mg Capsule, 500 MG PO QID for 10 Days, CAP Prov:GERARD GROSS DO 05/10/16 Discontinued Reported Medications Omeprazole* (Omeprazole*) 20 Mg Capsule.dr, 20 MG PO DAILY, CAP 12/30/14 Discontinued Scripts Hydrocodone Bit-Acetaminophen (Hydrocodone Bit-APAP) 5-325MG Tablet, 1 TAB PO Q4H Y for PAIN, #30 TAB Prov:KRYS RIVERA 05/07/16 Allergies Allergies: Coded Allergies: No Known Allergy (Unverified , 05/13/16) PMhx/Soc History of Surgery: Yes (carpal tunnel surgeries, throat biopsy; PARTIAL GASTRECTOMY) Anesthesia Reaction: No Hx Neurological Disorder: No Hx Respiratory Disorders: No Hx Cardiac Disorders: No Hx Psychiatric Problems: No Hx Miscellaneous Medical Probl: Yes (PRE-DM, GASTRIC CANCER) Hx Alcohol Use: Yes (occasional) Hx Substance Use: No Hx Tobacco Use: No (quit 3years ago) FmHx Family History: No diabetes Physical Exam Vitals Vital Signs Date Time Temp Pulse Resp B/P Pulse Ox O2 Delivery O2 Flow Rate FiO2 05/13/16 05:32 96.7 71 20 161/68 98 Physical Exam General: well developed, well nourished, alert, nontoxic, no distress Head: normocephalic, atraumatic Neck: Supple, nontender, no lymphadenopathy, no midline tenderness Respiratory: Clear to auscaultation bilaterally, speaks in full sentences, no use of accesory muscles or labored breathing, no rales, ronchi, or wheezing Cardiovascular: RRR, No murmurs GI: soft, non tender, non distended, negative murphys sign, negative mcburneys point tenderness, no cva tenderness bilaterally, no rebound or guarding Skin: Healing small open wound on the mid abdomen, mild drainage, no erythema, no bleeding, no tenderness, Procedures/MDM Patient presents for wound check. His wound is healing appropriately without any evidence of infection and he is taking antibiotics as prescribed. His main complaint is that because his wound is covered and still draining it is itchy. I recommended he take Benadryl at home. Wound care was performed today and his wound was redressed and bandaged. He has appointment with Dr. Farrell tomorrow which he plans to's go to.Recommended this patient follow up with her primary care doctor within 48 hours or return to the emergency room for any worsening of symptoms. However this time I do believe there is suitable for outpatient management. I answered all their questions and they agreed with the plan and were discharged home. Departure Diagnosis: Primary Impression: Encounter for wound re-check Condition: Stable Patient Instructions: Wound Care Additional Instructions: Llame al doctor ANDREA y cory tabby JOEL PARA DENTRO DE 1-2 SANCHES.Dgale a la secretaria que nosotros le instruimos hacer esta joel.Avise o llame si gonzales condicin se empeora antes de la joel. Regresa aqui si peor o no mejor. FELICITAS KIM PA-C May 13, 2016 07:52
== END 2016-05-13 08:20 | disposition home or self-care (01) ==
LOC: FTE 05:24
DX: Z48.01 Encounter for change or removal of surgical wound dressing (principal); E11.9 Type 2 diabetes mellitus without complications; Z87.891 Personal history of nicotine dependence
CPT/HCPCS: 99283